=== PATIENT | female | born 1955 | race Caucasian/White ===

== ENCOUNTER 2016-11-24 13:38 | Inpatient (IN) | payer MEDICARE ==
--- NOTE | ~2016-11-24 | CT71 ---
[facility] A Service of [facility] RADIOLOGY TEXT RESULTS PATIENT: DUNCAN RAYMUNDO LOCATION: C5 55-01 : 53 UNIT #: [id number] AGE: [address]: Jon Rascon MD SEX: F ORDER DR: [id number] [facility] [address] [place], [place] [address] [id number] I MR#: [id number] Acc #: [id number] NAME: DUNCAN RAYMUNDO. : 1955 SEX: F STUDY DATE/TIME: 11/24/2016 15:18 UNIT: CEDOF ROOM: [id number] STUDY DESCRIPTION: CT Head Wo Contrast Attending Physician: Jon Rascon M.D. Ordering Physician: Marlen Watkins M.D. Primary Care Physician: Yanelis Florian M.D. MEDICAL IMAGING REPORT This report is preliminary unless electronic signature is present EXAM CT brain without contrast media DATE OF STUDY 11/24 COMPARISON 08/04/2010 HISTORY SUPPLIED Elevated blood pressure, headache, dizziness and numbness for 1 week. TECHNIQUE/COMPARISON Transaxial imaging of the brain was performed without contrast and compared to the studies of 08/04/2010. This CT exam was performed with one or more of the following radiation dose reduction techniques: automatic exposure control, adjustment of mA and/or kV according to patient size, and iterative reconstruction. FINDINGS Ventricular size and configuration in this patient is normal for the patient's age. There is a chronic large area of infarction in the right basal ganglia extending up into the right caudate. There is extensive low attenuation throughout the periventricular white matter in both hemispheres. No mass lesions, mass effect, evidence of acute hemorrhage or edema. No intra or extraaxial fluid collections are present. Visualized sinuses and mastoid air cells are clear. CONCLUSION 1. Previous right basal ganglia and caudate infarct. 2. Extensive white matter abnormalities in both hemispheres likely on the basis of small vessel deep white matter ischemic change. No [facility] A Service [facility] RADIOLOGY TEXT RESULTS PATIENT: DUNCAN RAYMUNDO LOCATION: [facility] 5509-05 : 53 UNIT #: [id number] AGE: [address]: Jon Rascon MD SEX: F ORDER DR: significant interim change from previous scan. Dictated by... Chucky Lewis M.D. THIS IS AN ELECTRONICALLY VERIFIED REPORT Chucky Lewis M.D. at 11/25/2016 10:35 AM IRMA/karla TD: 11/24/2016 21:14 JOB #: [id number] MEDICAL IMAGING REPORT Page 1 of 1 COPY
--- NOTE | ~2016-11-24 | CT98 ---
[facility] A Service of [facility] RADIOLOGY TEXT RESULTS PATIENT: DUNCAN RAYMUNDO LOCATION: [facility] 55-01 : 53 UNIT #: [id number] AGE: [address]: Jon Rascon MD SEX: F ORDER DR: [id number] [facility] [address] [place], [place] [address] [id number] I MR#: [id number] Acc #: [id number] NAME: DUNCAN RAYMUNDO. : 1955 SEX: F STUDY DATE/TIME: 11/24/2016 20:42 UNIT: [facility] ROOM: [facility] STUDY DESCRIPTION: CT Lumbar Spine Wo Cont Attending Physician: Jon Rascon M.D. Ordering Physician: Jon Rascon M.D. Primary Care Physician: Yanelis Florian M.D. MEDICAL IMAGING REPORT This report is preliminary unless electronic signature is present EXAM Lumbar spine CT HISTORY Bilateral lower extremity weakness, UTI, lower back pain since fall 2.5 months ago. TECHNIQUE This CT examination was performed with one or more of the following radiation dose reduction techniques: automatic exposure control, adjustment of mA and/or kV according to patient size, and iterative reconstruction. FINDINGS CT lumbar spine performed. No prior cross-sectional imaging of lumbar spine for comparison. Comparison to plain radiographs dated 05/27/2014. Study somewhat limited by beam hardening artifact related to the patient's very large body habitus. Dependent atelectasis at the left lung base. Visualized portions of the liver, spleen, pancreas unremarkable. There are adrenal calcifications bilaterally. No soft tissue nodule or mass lesion. This may be a reflection of prior adrenal inflammatory change or adrenal hemorrhage. Correlate with history. The visualized kidneys are unremarkable. The visualized alimentary canal is unremarkable. Scattered atherosclerotic arterial calcifications. No clear indication of aortic aneurysm. 5 lumbar-type vertebral segments. Mild dextroscoliosis lower lumbar spine. Similar appearance on prior lumbar spine radiographs. Lumbar vertebral body heights are normal. There is severe narrowing of the T11-T12 intervertebral disc space. Moderate narrowing of the L3-L4, L4-L5 disc spaces with vacuum disc phenomenon L3-L4, L4-L5. Some degenerative vacuum disc phenomenon air extends into the right L4-L5 neural foramen. [facility] A Service of [facility] RADIOLOGY TEXT RESULTS PATIENT: DUNCAN RAYMUNDO LOCATION: [facility] 551-01 : 53 UNIT #: [id number] AGE: [address]: Jon Rascon MD SEX: F ORDER DR: There is grade 1 anterolisthesis of L4 on L5 felt secondary to disc and facet degenerative changes at this level. The anterolisthesis is on the order of approximately 2 mm and is unchanged from prior plain radiographs. There is no fracture or traumatic malalignment suggested. Baseline spinal canal narrowing due to short pedicles in the lumbar spine. T10-T11, T11-T12, T12-L1: No significant disc bulge or herniation. Spinal canal diameter within normal limits. The neural foramina are patent without evidence of exiting nerve impingement. L1-L2: Unremarkable. L2-L3: Minimal posterior concentric disc bulge. Mild mass effect on thecal sac. No significant spinal canal narrowing. Neural foramina patent without evidence of exiting nerve impingement. L3-L4: Broad-based posterior concentric disc bulge superimposed on baseline spinal canal narrowing due to short pedicles exacerbated by mild to moderate facet degenerative change. There is mild to mild/moderate spinal canal narrowing. Some narrowing of the bilateral lateral recesses, left greater than right. There is mild narrowing of the bilateral neural foramina without clear indication of exiting nerve impingement. L4-L5: This level is difficult to fully assess due to beam hardening artifact related to the patient's body habitus. There is anterolisthesis as noted. There is probably some degree of posterior concentric disc bulge with disc components extending into the inferior aspects of the bilateral neural foramina, more pronounced on the left than the right. There is some counterclockwise rotation of L4 relative to L5. Moderate to marked facet degenerative changes left greater than right. Overall constellation of findings is causing marked spinal canal narrowing at the level of the superior endplate of L5. There is mass effect on the bilateral lateral recesses. Descending nerve root crowding and mass effect on descending L5 nerves is likely. There is narrowing of the bilateral L4-L5 neural foramina, greater on the left than the right. Exiting left L4 nerve impingement is a consideration. Exiting right L4 nerve irritation is also a consideration. L5-S1: Again this level is difficult to assess well due to beam hardening artifact. There is probably posterior concentric disc bulge and probably mild central spinal canal narrowing. There is facet degenerative change. Probable disc bulge extension into the inferior aspects of the bilateral neural foramina perhaps greater on the right than left. Potentially significant foraminal narrowing bilaterally more likely on right than left. Correlate with dermatomal symptoms for any indication of L5 impingement or irritation. IMPRESSION 1. There is no evidence of traumatic fracture or malalignment. [facility] A Service of [facility] RADIOLOGY TEXT RESULTS PATIENT: DUNCAN RAYMUNDO LOCATION: [facility] 551-01 : 53 UNIT #: [id number] AGE: [address]: Jon Rascon MD SEX: F ORDER DR: 2. The study is significantly limited for assessment of the lower lumbar levels secondary to beam-hardening artifact related to the patient's large body habitus. 3. Degenerative 2 mm anterolisthesis L4 on L5 felt secondary to disc and facet degenerative changes. Similar appearance on plain radiographs from 2014. 4. Multilevel degenerative changes. These are most pronounced at the L4-L5 and L5-S1 levels. Please see complete details at [id number] descriptions in body of report above. Superimposed on baseline spinal canal narrowing due to short pedicles at the L4-L5 level, there is the grade 1 anterolisthesis of L4 on L5 and a posterior concentric disc bulge which in conjunction with facet and ligamentum flavum hypertrophic changes is causing marked central spinal canal narrowing at the level of the upper L5 endplate. There is narrowing of the bilateral lateral recesses as well. Descending nerve root crowding and mass effect on descending L5 nerves likely bilaterally, particularly on the left. In addition, there is disc bulge material extending into the inferior aspects of the bilateral neural foramina, more pronounced on left than right. Narrowing of the bilateral neural foramina is felt to be present with potential mass effect on the bilateral intraforaminal L4 nerves more likely on left than right. Correlate with dermatomal symptoms. 5. Facet/ligamentum flavum hypertrophic changes in conjunction with probable posterior disc bulge L5-S1 causing probably [id number]-dx-yvibmopd central spinal canal narrowing at the L5-S1 intervertebral disc level and potentially significant bilateral foraminal narrowing. Exiting L5 nerve irritation or impingement is a consideration bilaterally. Given the limitations of this examination, spinal canal and neural foraminal contents might best be further assessed with MRI (probably necessitating open MRI due to patient's large body habitus) or CT myelography. CT myelography may prove challenging given patient's body habitus. Dictated by... Chucky Rodriguez M.D. THIS IS AN ELECTRONICALLY VERIFIED REPORT Chucky Rodriguez M.D. at 11/26/2016 8:06 PM MARJORIE/chanel TD: 11/25/2016 06:11 JOB #: [id number] MEDICAL IMAGING REPORT Page 1 of 1 COPY
--- NOTE | ~2016-11-24 | CR72 ---
[facility] A Service of [facility] RADIOLOGY TEXT RESULTS PATIENT: DUNCAN RAYMUNDO LOCATION: [place] [address] : 53 UNIT #: [id number] AGE: [address]: Jon Rascon MD SEX: F ORDER DR: [id number] [facility] [address]. [place], [place] [address] [id number] MR#: [id number] Acc #: [id number] NAME: DUNCAN RAYMUNDO. : 1955 SEX: F STUDY DATE/TIME: 11/24/2016 UNIT: [facility] ROOM: 17221 STUDY DESCRIPTION: CR Chest Single View Portable Attending Physician: Jon Rascon M.D. Ordering Physician: Marlen Watkins M.D. Primary Care Physician: Yanelis Florian M.D. MEDICAL IMAGING REPORT This report is preliminary unless electronic signature is present EXAM Chest, portable, 11/24/2016, 1409 hours. HISTORY 61-year-old woman experiencing hypertensive episode today with shortness of air. COMPARISON STUDIES 06/01/2016 FINDINGS Portable upright chest demonstrates normal heart size with stable mildly tortuous aorta. The pulmonary vascularity is normal. The lungs are clear, and there are no effusions. There is no pneumothorax. IMPRESSION No acute cardiopulmonary findings. Normal heart size with stable mildly tortuous aorta. The lungs are clear. Dictated by... Ailin Goodson M.D. THIS IS AN ELECTRONICALLY VERIFIED REPORT Ailin Goodson M.D. at 11/25/2016 9:22 AM LORENA/lolly TD: 11/24/2016 18:09 JOB #: [id number] MEDICAL IMAGING REPORT [facility] A Service [facility] RADIOLOGY TEXT RESULTS PATIENT: DUNCAN RAYMUNDO LOCATION: [place] [address] : 53 UNIT #: [id number] AGE: [address]: Jon Rascon MD SEX: F ORDER DR: Page 1 of 1 COPY
--- NOTE | ~2016-11-24 | CO ---
Unit #: [id number] #: [id number] Patient: DUNCAN RAYMUNDO [id number] [address] [address] [id number] I MR#: [id number] NAME: DUNCAN RAYMUNDO. ROOM: 55 Age: 61 Sex: F Admission Date: 11/27/2016 : 1955 Attending Physician: Jon Rascon M.D. Primary Care Physician: Yanelis lForian M.D. Consultation Date: 11/30/2016 CONSULTATION REPORT HISTORY OF PRESENT ILLNESS The patient is a 61-year-old female who has suffered with severe leg pain. She has also developed weakness in her legs and has had low back pain. She has been admitted for a urinary tract infection. PAST MEDICAL HISTORY As per chart. MEDICATIONS Per chart and include: Plavix. PHYSICAL EXAMINATION The patient is somewhat above ideal weight. She has 5/5 strength. There is no motor or sensory deficits in her lower extremities. Ambulation is deferred. DIAGNOSTIC STUDIES IMAGING: CT scan shows poorly visualized spinal stenosis at L4-5 and L5-S1. MRI of lumbar spine does not show any fractures. There is severe degenerative disk disease and facet arthropathy. Multifactorial stenosis is severe at 4-5 and 5-1 and moderate at L3-4. There appears to be a spondylolisthesis of L4 and L5. CLINICAL IMPRESSION Lumbar radiculopathy secondary to lumbar stenosis. RECOMMENDATIONS The patient is adamantly opposed to any surgical treatment. She would have to be off Plavix safely for one week to have an epidural series. Outpatient physical therapy is certainly a consideration. Dictated by... Chucky Parker M.D. IVONE/eusebia Unit #: [id number] #: [id number] Patient: DUNCAN RAYMUNDO TD: 11/30/2016 18:34 JOB #: [id number] CONSULTATION REPORT Page 1 of 1 X Chucky Parker MD X CONSULTATION REPORT
--- NOTE | ~2016-11-24 | MR113 ---
[facility] A Service of [facility] RADIOLOGY TEXT RESULTS PATIENT: DUNCAN RAYMUNDO LOCATION: [facility] 551-01 : 53 UNIT #: [id number] AGE: [address]: Jon Rascon MD SEX: F ORDER DR: [id number] [facility] [address] [place], [place] [address] [id number] I MR#: [id number] Acc #: [id number] NAME: DUNCAN RAYMUNDO. : 1955 SEX: F STUDY DATE/TIME: 11/28/2016 12:35 UNIT: [facility] ROOM: [facility] STUDY DESCRIPTION: MR Lumbar Wo Contrast Attending Physician: Jon Rascon M.D. Ordering Physician: Chucky Parker M.D. Primary Care Physician: Yanelis Florian M.D. MRI CENTER REPORT This report is preliminary unless electronic signature is present. EXAM MRI lumbar spine without contrast HISTORY Bilateral leg weakness and tingling today. Chronic low back pain for 5 years. No injury. FINDINGS MRI lumbar spine was performed without contrast. Exam sensitivity is limited by patient motion. There is normal signal in the tip of the conus at L1. There is abnormal marrow signal in the mid and inferior margins of the L4 vertebra and in the majority of the L5 vertebra, which could be secondary to chronic degenerative change. There is 3.0 mm anterior subluxation of L4 on L5. Disc desiccation and severe disc space narrowing at L4-5. At T11-T12, there is gphm-on-nkexydew diffuse disc bulging causing slight ventral impression on the central canal, but no focal disc protrusion is identified. A T12-L1, there is no disc bulge or protrusion. At L1-2, there is minimal diffuse disc bulging, but no focal disc protrusion. At L2-3, there is minimal diffuse disc bulging and moderate bilateral facet hypertrophy, with minimal central canal narrowing. At L3-4, there is moderate diffuse disc bulging, greater along the left posterolateral disc margin and there is moderate bilateral facet hypertrophy, also greater on the left, causing moderate to moderately severe central canal stenosis and bilateral outlet foraminal stenosis, [facility] A Service of [facility] & [facility] RADIOLOGY TEXT RESULTS PATIENT: DUNCAN RAYMUNDO LOCATION: [facility] 551-01 : 53 UNIT #: [id number] AGE: [address]: Jon Rascon MD SEX: F ORDER DR: jose on the left. At L4-5, there is moderate diffuse disc bulging, and severe facet and ligamentous hypertrophy, and congenitally short pedicles, resulting in severe central canal stenosis, and severe bilateral outlet foraminal stenosis. At L5-S1, there is dbog-uu-clwuxjcx diffuse disc bulging, and advanced bilateral facet and ligamentous hypertrophy, causing severe central canal stenosis, and moderately severe bilateral outlet foraminal stenosis. IMPRESSION 1. Severe central canal stenosis at L4-5 and L5-S1. 2. Severe bilateral outlet foraminal stenosis at L4-5 and moderately severe bilateral outlet foraminal stenosis at L5-S1. These changes result from diffuse disc bulging and facet and ligamentous hypertrophy at these levels. 3. At L3-L4 there is moderate diffuse disc bulging, greater along the left posterolateral disc margin causing moderate central canal stenosis and moderately severe left outlet foraminal stenosis. 4. Grade 1 spondylolisthesis of L4 on L5 with degenerative disc disease and severe disc space narrowing at L4-5. 5. Probable degenerative marrow signal changes at L4 and L5. 6. Egyt-ce-xbxynkli diffuse disc bulging at T11-12. Dictated by... Tirso Carbajal M.D. THIS IS AN ELECTRONICALLY VERIFIED REPORT Tirso Carbajal M.D. at 11/29/2016 3:02 PM Iman TD: 11/29/2016 08:00 JOB #: [id number] MRI CENTER REPORT Page 1 of 1 COPY
--- NOTE | ~2016-11-24 | BMI ---
[facility] Nutrition Therapy DATE: 11/25/16 Patient: DUNCAN RAYMUNDO Physician: MARY Address: [address] [place] [address] Room/Bed: [address] [place] [address], Zip: [place] [address] Admit Date: 11/24/16 Date of : [birth year] Height: 4 2 Weight: 220 100.2 HIGH BMI NOTE: DX: 61 y/o female admitted for bilat LE weakness ANTHROPOMETRICS: Ht: 4'2" Wt: 100 kg (220#) BMI: 62.0 INTERVENTION: 1. Healthy Heart RECOMMENDATIONS: 1. Continue healthy heart diet to promote gradual weight loss towards healthy BMI. RD will f/u per protocol. Respectfully, VAUGHN ONEIL, Gallery Director Nickie Martel RD, LD Food and Nutritional Services [facility] cc: client file
--- NOTE | ~2016-11-24 | TH ---
Unit #: [id number] #: [id number] Patient: DUNCAN RAYMUNDO [id number] [facility]. [address] [address] [id number] I MR#: [id number] NAME: DUNCAN RAYMUNDO. : 1955 SEX: F STUDY DATE/TIME: 12/01/2016 UNIT: C5B ROOM: 551 STUDY DESCRIPTION: Attending Physician: Jon Rascon M.D. Primary Care Physician: Yanelis Florian M.D. CARDIOLOGY REPORT EXAM Lexiscan Cardiolite stress test, nuclear portion. PROCEDURE Using technetium 99m labeled Cardiolite, rest and stress SPECT images were obtained. Multiple SPECT images were obtained in various views including horizontal and vertical long axis and short axis views of the left ventricle. Images were obtained by gated SPECT method. The patient was administered 29.6 mCi of Cardiolite at rest. The patient was administered 29.7 mCi of Cardiolite after Lexiscan infusion was completed. On the stress images, there is normal perfusion noted. The rest images showed normal perfusion. Comparing rest and stress images, there is no stress-induced ischemia noted. The left ventricular ejection fraction is calculated to be 62%. There is no focal wall motion abnormality seen. CONCLUSION 1. No stress-induced ischemia noted. 2. The left ventricular ejection fraction is calculated to be 62%. 3. There is no focal wall motion abnormality seen. 4. Normal Lexiscan Cardiolite stress test. 5. Technically limited study due to patient's body habitus. Clinical correlation is requested. Dictated by... Isiah Johnson TD: 12/01/2016 17:00 JOB #: [id number] CARDIOLOGY REPORT Page 1 of 1 X Mamta Landin MD <ELECTRONICALLY SIGNED> 03/26/17 1429 CARDIOLOGY REPORT
--- NOTE | ~2016-11-24 | CO ---
Unit #: [id number] #: [id number] Patient: DUNCAN MORA [id number] [facility]. [address] [place], [place] [address] [id number] MR#: [id number] NAME: DUNCAN MORA. ROOM: 551 Age: 61 Sex: F Admission Date: 11/27/2016 : 1955 Attending Physician: Jon Rascon M.D. Primary Care Physician: Yanelis Florian M.D. Consultation Date: 11/30/2016 CONSULTATION REPORT REASON FOR CONSULTATION Accelerated junctional rhythm and some premature ventricular complexes. HISTORY OF PRESENT ILLNESS This is a 61-year-old white female, who has been here for since the 27 of November with a history of increased weakness, especially in lower extremities and some tingling and unsteady gait, and it got to the point where she could hardly ambulate with her walker. The patient has a history of having a stroke in her 20s and has some residual left-sided weakness. She has a history of hypertension, hyperlipidemia, chronic back pain. She reports she had a cardiac cath years ago and told it was normal, but details are unavailable. The patient is being worked up for possible some degenerative disk disease and/or spinal stenosis and has been seen by the Spinal surgeon and she on her telemetry had a short run of appears to look like accelerated junctional rhythm. The patient was asymptomatic since the patient has multiple risk factors. Cardiology has been asked to assist with evaluation and management. On interview with the patient, she says she has been having over the last 3 to 4 weeks occasional sharp, shooting pain across her chest. It feels like a knife that only lasts about 2 to 3 seconds. She said it continues usually non-exertionally. Denies shortness of breath. No palpitations. No dizziness, presyncope, or syncope. She is having some urinary retention issues, which we are evaluating during this admission. The patient states she had seen a naprapath that has been years and no recent evaluation by a naprapath. PAST MEDICAL HISTORY 1. Hypertension. 2. Hyperlipidemia. 3. History of previous stroke, right basal ganglia infarct, left-sided weakness. 4. Chronic back pain. 5. Depression. 6. Obesity. BMI of 58 with a weight of 221 pounds. 7. Cardiac cath years ago, told it was normal. Details unavailable. 8. Nicotine abuse. PAST SURGICAL HISTORY Tubal ligation. HOME MEDICATIONS Calcium plus vitamin D 1 tablet p.o. daily, fish oil 1000 mg p.o. b.i.d., Neurontin 100 mg p.o. daily, Toprol-XL 100 mg p.o. daily, Unit #: [id number] #: [id number] Patient: DUNCAN MORA hydrochlorothiazide 25 mg p.o. b.i.d., Plavix 75 mg p.o. daily, Zoloft 50 mg p.o. daily, Zocor 10 mg p.o. at bedtime, baclofen 10 mg p.o. daily p.r.n. ALLERGIES Aspirin. SOCIAL HISTORY The patient lives in her own home. She has an uncle, who comes to her home and helps her with her chores. She ambulates with a walker. She does not drive. She is very sedentary. She smokes about half a pack to a pack of cigarettes a day. Had been smoking off and on most of her adult life. No alcohol or illicit drug abuse. FAMILY HISTORY Her mother has hypertension. Her father from alcoholism. She has two sisters, one from throat cancer and one had colon cancer. REVIEW OF SYSTEMS See details in HPI. PHYSICAL EXAMINATION GENERAL: Ms. Mora is a 61-year-old white female, no acute respiratory distress. She is awake, alert, and oriented. VITAL SIGNS: Blood pressure is 125/65, heart rate 64, respirations 18, temperature 98.1, O2 saturations 98% on room air. NECK: Trachea midline. No thyromegaly or lymphadenopathy. Normal carotid upstrokes. No jugular venous distention. HEART: S1, S2. Regular rate and rhythm. Soft systolic murmur in the left sternal border. LUNGS: Diminished. ABDOMEN: Obese, soft, nontender. EXTREMITIES: Pedal pulses are palpable. Trace pedal edema. DIAGNOSTIC STUDIES LABORATORY RESULTS: Today's labs; glucose is 97; BUN 57; creatinine 1.4; yesterday, her creatinine was 1.7; eGFR is 39.9; sodium 139; potassium 4.5; chloride 107; CO2 of 24; calcium is 8.8; magnesium is 2.0; total protein 7.6; albumin 3.7; bilirubin total 0.4; AST 23; ALT 16; alkaline phosphatase is 94. TSH is 5.01. WBCs 10.5, hemoglobin 13.1, hematocrit 40.8, and platelets are 195. Initial cardiac enzymes; CK-MB is 1.4, troponin less than 0.05. Repeat cardiac enzymes; troponin less than 0.05. INR is 1.0. Urinalysis shows 0.2 urobilinogen. Urine culture, final; no growth. IMAGING STUDIES: Chest x-ray shows nothing acute. Lungs are clear. CT of the head shows previous right basal ganglia and caudate infarct. CT of the lumbar spine shows multilevel degenerative changes, especially at L4-L5 and L5-S1 levels. There is a baseline spinal canal narrowing at L4-L5 level and also probable posterior disk bulge at L5-S1 and mild to moderate central spinal canal narrowing at L5-S1. MRI of lumbar spine without contrast shows severe central canal stenosis at L4-5 and L5-S1, severe bilateral outlet foraminal stenosis at L4-L5, and moderately severe bilateral outlet foraminal stenosis at L5-S1. There is moderate diffuse disk bulging on L3-L4 and spondylolisthesis on L4-L5 Unit #: [id number] #: [id number] Patient: DUNCAN MORA with degenerative disk disease and severe disk space narrowing at L4-L5. CARDIOVASCULAR STUDIES: EKG shows normal sinus rhythm with ventricular rate 62 beats per minute, left ventricular hypertrophy. Telemetry this morning shows sinus rhythm and her short run of accelerated idioventricular rhythm versus accelerated junctional rhythm with occasional premature ventricular complex. IMPRESSION 1. Bilateral lower extremity weakness. MRI shows severe canal stenosis on L4-L5 and L5-S1. 2. Acute renal failure. 3. Urinary tract infection. 4. Hypertension. 5. Junctional rhythm. 6. Previous stroke back in several years ago, has some left-sided weakness. 7. Hyperlipidemia. 8. Nicotine abuse. 9. Obesity. PLAN 1. Cardiology consult to assist with evaluation and management. 2. The patient had a run of looks like idioventricular rhythm versus accelerated junctional rhythm. 3. We will obtain a TSH and lipid profile and evaluate. We will check the patient's magnesium level and potassium and make sure there is no electrolyte imbalance causes this arrhythmia. The patient was asymptomatic. The patient has been having some atypical chest pain. It is sharp, shooting in nature, which is unlikely to be angina, but it has been years since the patient had any type of ischemic heart disease workup. We will try to obtain a cardiac cath that, she said that she believes, was done at [facility]. 4. We will obtain a 2D echo to evaluate LV function and valves. On exam, it does not appear she is in acute congestive heart failure. 5. We will schedule the patient for Lexiscan Cardiolite stress test, resting today and a stress portion tomorrow. We will decrease her metoprolol to 50 mg p.o. b.i.d. with parameters and monitor closely any arrhythmias. Encourage the patient a weight loss. We will have the librarian assistant to help the patient with diet to maintain goals for weight loss. 6. Encourage the patient to completely quit smoking. 7. Smoking cessation information provided to the patient. 8. Further recommendations pending further testing. Thank you very much for allowing us to assist in the care. Dictated by... Roman Culp/zandra TD: 12/01/2016 05:29 JOB #: [id number] Unit #: [id number] #: [id number] Patient: DUNCAN MORA CONSULTATION REPORT Page 1 of 1 X Nicole King APRN X CONSULTATION REPORT
--- NOTE | ~2016-11-24 | EKG ---
PATIENT: DUNCAN RAYMUNDO UNIT #: [id number] Ventricular Rate: 62 BPM Atrial Rate: 62 BPM P-R Interval: 156 ms QRS Duration: 74 ms Q-T Interval: 396 ms QTC Calculation(Bezet): 401 ms P [place]: 21 degrees Calculated R [place]: 1 degrees Calculated T [place]: 11 degrees Diagnosis Line: Normal sinus rhythm Diagnosis Line: Moderate voltage criteria for LVH, may be normal Diagnosis Line: variant Diagnosis Line: Borderline ECG Baseline wander Diagnosis Line: When compared with ECG of 21-JAN-2015 13:27, Diagnosis Line: No significant change was found Diagnosis Line: Confirmed by CHARLEY OROZCO MD ([id number]) on 11/26/2016 Diagnosis Line: 9:30:35 AM INTERPRETING MD: ERNESTO CASH
--- NOTE | ~2016-11-24 | DS ---
Unit #: [id number] #: [id number] Patient: DUNCAN RAYMUNDO [id number] [address] [address] [id number] I MR#: [id number] NAME: DUNCAN RAYMUNDO. ROOM: 551 Age: 61 Sex: F Admission Date: 11/27/2016 : 1955 Discharge Date: 12/02/2016 Attending Physician: Jon Rascon M.D. Primary Care Physician: Yanelis Florian M.D. DISCHARGE SUMMARY FINAL DIAGNOSES 1. Accelerated hypertension. 2. Questionable urinary tract infection. Urine culture is negative. 3. Bilateral lower extremity weakness. Unable to ambulate. 4. Severe central canal stenosis at L4-L5 and L5-S1. 5. Acute renal failure which is improved. 6. History of chronic kidney disease stage 2, due to hypertension. 7. Urinary retention, status post Valles, which has been removed and Flomax has been added. 8. Junctional rhythm episode on 11/30/2016. 9. Status post carotid stress test which was normal. 10. Previous CVA. 11. Nicotine abuse. 12. Morbid obesity. 13. Hyperlipidemia. DISCHARGE MEDICATIONS 1. Fish oil capsule b.i.d. 2. Pepcid 20 mg daily. 3. Plavix 75 mg daily. 4. Os-Juan Antonio 500 p.o. daily. 5. Baclofen 10 mg daily p.r.n. muscle spasm. 6. Zocor 10 mg at bedtime. 7. Toprol 25 mg b.i.d. 8. Mycostatin powder under the breast area q.i.d. 9. Zoloft 50 mg daily. 10. Neurontin 100 mg daily. 11. Flomax 0.4 mg daily. 12. Combivent nebulizer treatment p.r.n. CONSULTANTS Dr. Adam Marie from renal services. Dr. Chucky Parker from neurosurgery services. Dr. Landin from cardiology services. DIAGNOSTIC DATA LABORATORY: At discharge, sodium 139, potassium 4.3, chloride 109, BUN 39, creatinine 1.1, calcium 9.0. CBC shows white blood cell count 10.5, hemoglobin 13.1, hematocrit 40.8, platelets 195. TSH 5.01. Urine culture is no growth. IMAGING: MRI of the lumbar spine was done, which showed severe central canal stenosis at L4-L5 and L5-S1, severe bilateral outlet foraminal stenosis at L4-L5. Diffuse disc bulging at L3-L4. Grade 1 Unit #: [id number] #: [id number] Patient: DUNCAN RAYMUNDO spondylolisthesis of L4 on L5 with degenerative disc disease, mild to moderate diffuse disc bulging at T11-T12. HOSPITAL COURSE Uncontrolled hypertension: The patient had accelerated hypertension during hospitalization. Her medications have been adjusted. The patient's blood pressure is much better this morning. Blood pressure is 118/59. Urinary tract infection: There was a question of urinary tract infection. The patient received IV Rocephin during hospitalization. That has been discontinued because the patient's urine culture is negative. She is afebrile and has no leukocytosis and does not have any symptoms any more. Bilateral lower extremity weakness and radiculopathy: The patient had a CT scan done and later on MRI of the lumbar spine done. Dr. Parker was consulted. Per Dr. Parker, the patient is adamantly opposed to any surgical treatment. She would have to be off Plavix therapy for a week to have any epidural series. Outpatient physical therapy was recommended. I have personally talked with Dr. Parker and no surgical intervention at this time. Rehab facility transfer for physical therapy and occupational therapy. If symptoms get worse, then the patient needs to be referred back to neurosurgeon. Junctional rhythm: During hospitalization the patient did have junctional rhythm. The patient's beta pardeep was reduced in dose and she is doing much better. Stress test was done as per recommendation and it shows normal Lexiscan Cardiolite. Left ventricular ejection fraction was 60%-65%. The patient's right ventricular pressure is normal. Acute kidney injury on chronic kidney disease: The patient's hydrochlorothiazide was discontinued. Protonix was discontinued. She does have a history of chronic kidney disease stage 2 secondary to hypertension. The patient's renal symptoms are better and that needs to be observed. NSAIDs need to be avoided. BMP is to be done in one week. Urinary retention: The patient did have urinary retention during hospitalization and Flomax was started. Valles was discontinued on 12/01/2016. Voiding trial will be done. If it is normal the patient will be discharged. Tobacco abuse: Tobacco cessation counseling has been done. DISCHARGE PHYSICAL EXAMINATION VITALS: Blood pressure 118/59, respiratory rate 18, pulse 59, temperature 98.2. HEAD: Normocephalic. CHEST: Fair air entry. HEART: S1 and S2 positive. Regular rhythm. ABDOMEN: Obese. EXTREMITIES: Negative edema. DISCHARGE INSTRUCTIONS 1. The patient will be discharged to rehab facility in stable condition. 2. Medications as per medication reconciliation. 3. Physical therapy and occupational therapy at rehab. 4. Follow up with Dr. Florian in a week when discharged from rehab facility. Unit #: [id number] #: [id number] Patient: DUNCAN RAYMUNDO 5. If the patient's symptoms of back pain or lower extremity weakness get worse, the patient will be referred back to Dr. Parker. Dictated by... Isiah Angeles/cassia TD: 12/02/2016 09:33 JOB #: [id number] DISCHARGE SUMMARY Page 1 of 1 X Yanelis Florian MD X DISCHARGE SUMMARY
--- NOTE | ~2016-11-24 | CO ---
Unit #: [id number] #: [id number] Patient: DUNCAN MORA [id number] [facility]. [address] [place], [place] [address] [id number] I MR#: [id number] NAME: DUNCAN MORA. ROOM: 551 Age: 61 Sex: F Admission Date: 11/27/2016 : 1955 Attending Physician: Jon Rascon M.D. Primary Care Physician: Yanelis Florian M.D. Consultation Date: 11/29/2016 CONSULTATION REPORT REASON FOR CONSULTATION Acute kidney injury and hypertension management. HISTORY OF PRESENT ILLNESS Ms. Mora is a pleasant 61-year-old female, who was admitted back on the for issues with accelerated hypertension and low back pain with lower extremity weakness. She was also suspected to have a urinary tract infection. The patient has had multiple scans for her low back, none of which contained any IV contrast. Due to her elevated blood pressures, her medication has been titrated higher and lisinopril was introduced. She did have some readings that dropped into the 90s on a couple of occasions. In addition, nursing evaluated her bladder for urinary retention and found 358 mL of retention on a scan today and a Valles catheter has been placed. She is still having some bladder spasm. She denies any chest discomfort or shortness of breath. She was not using any NSAIDs before coming in. She has no history of kidney stones. PAST MEDICAL HISTORY Significant for hypertension, history of stroke in the past according to her, depression, and hyperlipidemia. PAST SURGICAL HISTORY None reported. CURRENT MEDICATIONS As follows; amlodipine 5 mg daily, Lovenox 40 mg subcu daily, Protonix 40 mg daily, calcium plus D daily, fish oil b.i.d., Neurontin 100 mg a day, Toprol-XL 100 mg a day, hydrochlorothiazide 25 mg a day, Plavix 75 mg a day, Zoloft 50 mg a day, Zocor 10 mg at bedtime, Nystatin topical as needed, lisinopril 10 mg daily was held, also have Rocephin 1 g IV daily, and p.r.n. ALLERGIES She has quoted allergy to aspirin. FAMILY HISTORY She denies any family history of kidney problems specifically no one on dialysis or needing kidney transplantation. SOCIAL HISTORY The patient does smoke about a pack or more of cigarettes per day. No alcohol or drug abuse. REVIEW OF SYSTEMS Unit #: [id number] #: [id number] Patient: DUNCAN MORA A complete 12-point review of systems was completed with the above findings. In addition, she denies any headaches or dizziness. No nosebleed. No sore throat or earache. No chest pain or palpitations. No cough or hemoptysis. No nausea, vomiting, or diarrhea. In fact, she is eating dinner currently. No abdominal pain. No hematuria. No swelling. No rashes. No itching. No night sweats or hot flashes. No intolerance to heat or cold. No chills. No bleeding issues. No recent weight changes. No blurry vision. Unless otherwise indicated, the review of systems was negative. PHYSICAL EXAMINATION VITAL SIGNS: The patient is afebrile, pulse 61, respiratory rate 20, blood pressure 151/68. Lowest blood pressure I see was 2 days ago at 93/47, and she had another one before that of 95/53. I's and O's are positive by 270 mL. GENERAL: This is a pleasant 61-year-old white female, who is alert, eating dinner, and in no acute distress. HEENT: Head is atraumatic and normocephalic. Eyes show pink conjunctivae with no scleral icterus. No nasal drainage or nosebleed. Oropharynx is moist. No thrush. She does have a narrow posterior pharyngeal airway. NECK: Thick with no JVD appreciated. HEART: Regular rate and rhythm with distant S1 and S2. No murmur or rub appreciated. LUNGS: Have diminished air entry bilaterally with no wheezing. Breathing is nonlabored. ABDOMEN: Obese, soft, nontender, nondistended. Bowel sounds are present. No masses appreciated. EXTREMITIES: No lower extremity cyanosis or edema. SKIN: Dry. No rashes. MUSCULOSKELETAL: No joint effusions noted. NEUROLOGIC: The patient is able to wiggle her toes. Tonight she said she did get up and walk some today cranial nerves are grossly intact. LYMPHATIC: There is no neck or cervical lymphadenopathy. PSYCHIATRIC: Mood and affect appear normal. No anxiety. DIAGNOSTIC STUDIES LABORATORY RESULTS: Magnesium level just drawn was 2. Urinalysis today was bland with no blood or protein. Chemistry earlier today; sodium 141, potassium 4.4, chloride 106, bicarb 23, glucose 94, BUN 61, creatinine up to 1.7. Procalcitonin was negative. CBC showed a white count of 11. Yesterday's creatinine was 1.5. Urine culture thus far is negative. CBC with diff 2 days ago showed no eosinophilia. Creatinine before this was 1.2. BNP was 28. Back on the creatinine was 0.9; therefore, overall creatinine has trended up. On admission here at 1.2 up to 1.7 today. IMAGING STUDIES: Chest x-ray on admit showed no acute findings. Again review of her imaging here of her back which has shown degenerative disk disease. Does not show any CT contrast used. ASSESSMENT AND PLAN 1. Acute kidney injury on possible chronic kidney disease, stage 2 due to hypertension. Again, her admission creatinine was 1.2 which is abnormal for a female at her age. Her acute kidney injury is likely prerenal in nature from intermittent hypotension while on an ALLYSSA inhibitor which was introduced while here in the hospital. She has also been on Unit #: [id number] #: [id number] Patient: DUNCAN MORA hydrochlorothiazide, which was stopped. I do agree with stopping her ALLYSSA inhibitor and diuretic and using IV fluids. I would not over treat her blood pressure as I think her blood pressure variability is part of the prerenal picture. Of note, she did get started on Protonix when she came in, which can cause acute interstitial nephritis, so we will discontinue this and switch her over to Pepcid with followup labs in the morning. We will also check a CPK level with her statin use. 2. Hypertension. This has been very labile. I would allow her blood pressures to level off somewhere around 140 or 150 to allow renal recovery and would not over treat her blood pressure. 3. Urinary retention. Valles catheter is in place and I will be adding Flomax. 4. Tobacco abuse. Counseling was given. 5. Bilateral lower extremity weakness being followed by Spine. 6. Questionable urinary tract infection on Rocephin, but culture negative. I would like to thank Dr. Florian for this consult and the opportunity to participate in evaluation and care of Ms. Mora. Dictated by... Caleb Marie Jr., M.D. ASHLEY/zandra TD: 11/30/2016 01:58 JOB #: [id number] CONSULTATION REPORT Page 1 of 1 X Caleb Marie MD CONSULTATION REPORT
--- NOTE | ~2016-11-24 | ST ---
Unit #: [id number] #: [id number] Patient: DUNCAN RAYMUNDO [id number] [facility]. [facility] [address] [facility]. [place], [place] [address] [id number] I MR#: [id number] NAME: DUNCAN RAYMUNDO. : 1955 SEX: F STUDY DATE/TIME: 12/01/2016 UNIT: [id number] ROOM: 551 STUDY DESCRIPTION: Attending Physician: Jon Rascon M.D. Primary Care Physician: Yanelis Florian M.D. CARDIOLOGY REPORT EXAM Lexiscan Cardiolite stress test. FINDINGS Baseline EKG: Sinus bradycardia, heart rate 58 beats per minute, poor R-wave progression, low voltage in V3, T-wave inversion in lead III. PROCEDURE Lexiscan is a 4-minute test with Lexiscan being injected within the first minute followed by Cardiolite. EKG during the test was equivocal to baseline. Continued to show T-wave inversion in lead III and nonspecific ST-T wave abnormalities in aVF, also in V4 and V5. The patient had no complaints of chest pain, palpitations, or dizziness. Had increased shortness of breath and fatigueness which resolved in recovery phase. Maximal heart rate response was 84 beats per minute with a maximum blood pressure response of 125/88 mmHg. Cardiolite was injected after Lexiscan within the first minute of the test. Radionuclide tests pending. Please correlate with nuclear images. Dictated by... Nicole King A.P.R.N. for Isiah Johnson/douglas TD: 12/01/2016 08:58 JOB #: [id number] CARDIOLOGY REPORT Page 1 of 1 X Nicole King APRN CARDIOLOGY REPORT
--- NOTE | ~2016-11-24 | HP ---
Unit #: [id number] #: [id number] Patient: DUNCAN MORA [id number] [facility]. [address] [place], [place] [address] [id number] I MR#: [id number] NAME: DUNCAN MORA. ROOM: 55 Age: 61 Sex: F Admission Date: 11/24/2016 : 1955 Attending Physician: Jon Rascon M.D. Primary Care Physician: Yanelis Florian M.D. HISTORY AND PHYSICAL ADMISSION DIAGNOSES 1. Accelerated hypertension. 2. Questionable UTI. 3. Bilateral lower extremity weakness, inability to ambulate. HISTORY OF PRESENT ILLNESS Ms. Duncan Mora is a 61-year-old female, a patient of Dr. Florian, who comes to the emergency room with complaints of increased generalized weakness along with bilateral lower extremity weakness and tingling. The patient denies any chest pain. Denies any shortness of air. Denies any headache, dizziness, fever, chills, nausea, vomiting, diarrhea or abdominal pain. The patient states that her symptoms started about 2-3 days ago and progressively got worse to the point that she is not able to ambulate today. Initial evaluation in the emergency room is significant for leukocyte esterase in the UA, along with white count of 13,000. The rest of the workup is basically unremarkable. CT of the head shows some old changes and chronic vascular changes but nothing acute. Chest x-ray also is unremarkable. Patient is getting admitted for 23-hour observation pending urine culture. REVIEW OF SYSTEMS A 12-point review of systems on this patient is basically negative except as above in HPI. PAST MEDICAL HISTORY Significant for hypertension, history of CVA in the past. PAST SURGICAL HISTORY None. HOME MEDICATIONS I do not have in front of me, but this will be clarified with the pharmacy, and the patient will be restarted accordingly. ALLERGIES Aspirin. FAMILY HISTORY Unremarkable. PHYSICAL EXAMINATION GENERAL: The patient is a 61-year-old female in no acute distress. VITAL SIGNS: BP currently 135/85, heart rate 72, respirations 20, temperature 98.2. Unit #: [id number] #: [id number] Patient: DUNCAN MORA HEENT: Head is atraumatic. Pupils are equal, round and reactive to light and accommodation. Extraocular muscles are intact. Oropharynx is clear. NECK: Neck is supple. No masses. No JVD. No bruit. RESPIRATORY: Chest is diminished at the bases but generally clear. CARDIOVASCULAR: S1, S2. No murmurs. ABDOMEN: Abdomen is soft, nontender, nondistended. EXTREMITIES: Lower extremities have no cyanosis, clubbing or edema. NEUROLOGIC: Patient grossly intact without any focal deficits except bilateral lower extremity weakness, maybe 3 to 4/5. She demonstrates, also, decreased sensation in bilateral lower extremities. ASSESSMENT AND PLAN 1. Bilateral lower extremity weakness with paresthesia with the patient having a history of chronic back pain. Will check the CT of the back. Will also have PT/OT evaluation. 2. Accelerated hypertension. Currently stable. Resume home meds. Monitor closely. 3. UTI. Started on Rocephin. Followup on urine cultures. 4. GI and DVT prophylaxis. Start PPI and Lovenox. Dictated by Isiah Gaviria/yuri TD: 11/25/2016 08:58 JOB #: [id number] HISTORY AND PHYSICAL Page 1 of 1 X Jon Rascon MD HISTORY AND PHYSICAL
[2016-11-24 14:57] LABS: BASOPHIL# 0.1 X10e3 (0-0.3); BASOPHIL% 0.8 % (0-2.5); EOSINOPHIL# 0.3 X10e3 (0-0.7); EOSINOPHIL% 2.6 % (0.0-7.0); HEMATOCRIT 44.3 % (35.0-45.0); HEMOGLOBIN 14.4 gm/dL (12.0-16.0); LYMPHOCYTE% 15.1 % (17.0-45.0); MEAN CELL VOLUME 90.9 FL (83-96); MEAN CORPUSCULAR HEMOGLOBIN 29.7 PG (28-34); MEAN CORPUSCULAR HGB CONC 32.6 g/dL (30-36); MEAN PLATELET VOLUME 10.3 FL (6.5-11.5); MONOCYTE# 0.9 X10e3 (0-1.0); MONOCYTE% 6.7 % (3.0-12.0); NEUTROPHIL# 9.9 X10e3 (1.5-7.1); NEUTROPHIL% 74.8 % (40-75); PLATELET COUNT 211 X10e3 (140-420); RED BLOOD COUNT 4.87 X10e (3.90-5.30); RED CELL DISTRIBUTION WIDTH 13.9 % (11.0-15.5); WHITE BLOOD COUNT 13.2 X10e3 (4.0-10.5)
[2016-11-24 14:57] LABS: POC - CKMB 1.4 ng/mL (0.0-7.9); POC - TROPONIN <0.05 ng/mL (<=0.05)
[2016-11-24 14:58] LABS: DIFF IND NO
[2016-11-24 15:16] LABS: PARTIAL THROMBOPLASTIN TIME 27.5 SECONDS (23.5-31.3); PROTHROMBIN TIME (PATIENT) 10.2 SECONDS (9.6-11.5)
[2016-11-24 15:26] LABS: ALBUMIN SERUM 3.7 g/dL (3.5-5.0); ALKALINE PHOSPHATASE 94 U/L (32-92); ALT (SGPT) 16 U/L (10-40); AST (SGOT) 23 U/L (10-42); BILIRUBIN, DIRECT 0.1 mg/dL (0.0-0.2); BILIRUBIN,INDIRECT 0.3 mg/dL (0.0-0.9); BILIRUBIN,TOTAL 0.4 mg/dL (0.2-2.0); BLOOD UREA NITROGEN 29 mg/dL (9-23); BUN/CREATININE RATIO 32.22; CALCIUM SERUM 9.6 mg/dL (8.4-10.2); CARBON DIOXIDE 26 mmol/L (22-31); CHLORIDE 104 mmol/L (100-111); CREATININE SERUM 0.9 mg/dL (0.6-1.4); GLOM FILT RATE Estimated ABOVE60 mL/min (>60); GLUCOSE FASTING 96 mg/dL (70-110); POTASSIUM 4.1 mmol/L (3.5-5.1); PROTEIN TOTAL SERUM 7.6 g/dL (6.0-8.3); SODIUM 139 mmol/L (135-145)
[2016-11-24 16:32] LABS: URINE SOURCE CLEAN CATCH
[2016-11-24 16:37] LABS: URINE APPEARANCE CLEAR; URINE BILIRUBIN NEG (NEG); URINE BLOOD NEG (NEG); URINE COLOR YELLOW; URINE GLUCOSE NEG (NEG); URINE KETONE NEG (NEG); URINE LEUKOCYTE ESTERASE TRACE (NEG); URINE NITRATE NEG (NEG); URINE PROTEIN NEG (NEG); URINE SPECIFIC GRAVITY 1.015 (1.003-1.035); URINE UROBILINOGEN 0.2 MG/DL (NEG)
[2016-11-24 16:40] LABS: URBCS1 AUWI 0-2 /[HPF] (0-2); URINE BACTERIA AUWI NEG (NEGATIVE); URINE SQUAMOUS EPITHELIAL CELL NONE SEEN /[HPF]; UWBCS1 AUWI 0-2 (0-5)
[2016-11-24 16:46] LABS: CULTURE INDICATED? NO
[2016-11-24 19:35] LABS: FOLATE (FOLIC ACID) >23.6 ng/mL (>5.8)
[2016-11-25 05:59] LABS: HEMATOCRIT 43.1 % (35.0-45.0); MEAN CELL VOLUME 90.5 FL (83-96); MEAN CORPUSCULAR HEMOGLOBIN 29.5 PG (28-34); MEAN CORPUSCULAR HGB CONC 32.5 g/dL (30-36); MEAN PLATELET VOLUME 9.9 FL (6.5-11.5); RED BLOOD COUNT 4.77 X10e (3.90-5.30); RED CELL DISTRIBUTION WIDTH 13.5 % (11.0-15.5); WHITE BLOOD COUNT 11.1 X10e3 (4.0-10.5)
[2016-11-25] MEDS ORDERED: CALCIUM + D 6001 TA1 PO (16:29)
[2016-11-25] MEDS ORDERED: FISH OIL 1,0001 CAP PO (16:29)
[2016-11-25] MEDS ORDERED: HYDROCHLOROTHIA25 MG PO (16:31)
[2016-11-25] MEDS ORDERED: ZOLOFT50 MG PO (16:32)
[2016-11-25] MEDS ORDERED: CLOPIDOGREL75 MG PO (16:32)
[2016-11-25] MEDS ORDERED: ZOCOR10 MG PO (16:33)
[2016-11-26 05:42] LABS: HEMATOCRIT 44.3 % (35.0-45.0); HEMOGLOBIN 14.4 gm/dL (12.0-16.0); MEAN CELL VOLUME 91.2 FL (83-96); MEAN CORPUSCULAR HEMOGLOBIN 29.7 PG (28-34); MEAN CORPUSCULAR HGB CONC 32.6 g/dL (30-36); MEAN PLATELET VOLUME 9.8 FL (6.5-11.5); RED BLOOD COUNT 4.86 X10e (3.90-5.30); RED CELL DISTRIBUTION WIDTH 13.4 % (11.0-15.5)
[2016-11-26 06:13] LABS: BUN/CREATININE RATIO 22.5; CREATININE SERUM 1.2 mg/dL (0.6-1.4); GLOM FILT RATE Estimated 48.1 mL/min (>60)
[2016-11-28 05:14] LABS: BASOPHIL# 0.1 X10e3 (0-0.3); BASOPHIL% 0.8 % (0-2.5); EOSINOPHIL# 0.3 X10e3 (0-0.7); EOSINOPHIL% 2.5 % (0.0-7.0); HEMATOCRIT 43.8 % (35.0-45.0); LYMPHOCYTE# 3.2 X10e3 (1.0-3.5); LYMPHOCYTE% 23.8 % (17.0-45.0); MEAN CELL VOLUME 92.4 FL (83-96); MEAN CORPUSCULAR HEMOGLOBIN 29.5 PG (28-34); MEAN PLATELET VOLUME 10.3 FL (6.5-11.5); MONOCYTE% 7.6 % (3.0-12.0); NEUTROPHIL# 8.9 X10e3 (1.5-7.1); NEUTROPHIL% 65.3 % (40-75); PLATELET COUNT 201 X10e3 (140-420); RED BLOOD COUNT 4.74 X10e (3.90-5.30); RED CELL DISTRIBUTION WIDTH 13.5 % (11.0-15.5); WHITE BLOOD COUNT 13.7 X10e3 (4.0-10.5)
[2016-11-28 05:22] LABS: DIFF IND NO
[2016-11-28 05:57] LABS: BUN/CREATININE RATIO 31.33; CALCIUM SERUM 9.1 mg/dL (8.4-10.2); CREATININE SERUM 1.5 mg/dL (0.6-1.4); GLOM FILT RATE Estimated 36.7 mL/min (>60)
[2016-11-29 06:16] LABS: HEMATOCRIT 43.1 % (35.0-45.0); HEMOGLOBIN 13.7 gm/dL (12.0-16.0); MEAN CELL VOLUME 92.1 FL (83-96); MEAN CORPUSCULAR HEMOGLOBIN 29.3 PG (28-34); MEAN CORPUSCULAR HGB CONC 31.8 g/dL (30-36); MEAN PLATELET VOLUME 10.3 FL (6.5-11.5); RED BLOOD COUNT 4.68 X10e (3.90-5.30); RED CELL DISTRIBUTION WIDTH 13.7 % (11.0-15.5)
[2016-11-29 07:16] LABS: BLOOD UREA NITROGEN 61 mg/dL (9-23); BUN/CREATININE RATIO 35.88; CALCIUM SERUM 9.1 mg/dL (8.4-10.2); CARBON DIOXIDE 23 mmol/L (22-31); CHLORIDE 106 mmol/L (100-111); CREATININE SERUM 1.7 mg/dL (0.6-1.4); GLOM FILT RATE Estimated 31.6 mL/min (>60); GLUCOSE FASTING 94 mg/dL (70-110); POTASSIUM 4.4 mmol/L (3.5-5.1); SODIUM 141 mmol/L (135-145)
[2016-11-29 07:17] LABS: PROCALCITONIN <0.05 NG/ML
[2016-11-29 16:38] LABS: URINE SOURCE CATH
[2016-11-29 16:45] LABS: URINE APPEARANCE CLEAR; URINE BILIRUBIN NEG (NEG); URINE BLOOD NEG (NEG); URINE COLOR YELLOW; URINE GLUCOSE NEG (NEG); URINE KETONE NEG (NEG); URINE LEUKOCYTE ESTERASE NEG (NEG); URINE NITRATE NEG (NEG); URINE PROTEIN NEG (NEG); URINE SPECIFIC GRAVITY 1.015 (1.003-1.035); URINE UROBILINOGEN 0.2 MG/DL (NEG)
[2016-11-30 06:14] LABS: BASOPHIL# 0.1 X10e3 (0-0.3); EOSINOPHIL# 0.3 X10e3 (0-0.7); EOSINOPHIL% 3.2 % (0.0-7.0); HEMATOCRIT 40.8 % (35.0-45.0); HEMOGLOBIN 13.1 gm/dL (12.0-16.0); LYMPHOCYTE# 2.2 X10e3 (1.0-3.5); LYMPHOCYTE% 21.1 % (17.0-45.0); MEAN CELL VOLUME 92.1 FL (83-96); MEAN CORPUSCULAR HEMOGLOBIN 29.7 PG (28-34); MEAN CORPUSCULAR HGB CONC 32.2 g/dL (30-36); MEAN PLATELET VOLUME 10.5 FL (6.5-11.5); MONOCYTE# 0.9 X10e3 (0-1.0); MONOCYTE% 8.1 % (3.0-12.0); NEUTROPHIL% 66.6 % (40-75); PLATELET COUNT 195 X10e3 (140-420); RED BLOOD COUNT 4.43 X10e (3.90-5.30); RED CELL DISTRIBUTION WIDTH 13.4 % (11.0-15.5); WHITE BLOOD COUNT 10.5 X10e3 (4.0-10.5)
[2016-11-30 06:18] LABS: DIFF IND NO
[2016-11-30 07:19] LABS: BUN/CREATININE RATIO 40.71; CALCIUM SERUM 8.8 mg/dL (8.4-10.2); CREATININE SERUM 1.4 mg/dL (0.6-1.4); GLOM FILT RATE Estimated 39.9 mL/min (>60); POTASSIUM 4.5 mmol/L (3.5-5.1)
[2016-12-01 06:56] LABS: CALCIUM SERUM 8.9 mg/dL (8.4-10.2); CREATININE SERUM 1.1 mg/dL (0.6-1.4); GLOM FILT RATE Estimated 53.4 mL/min (>60); POTASSIUM 4.1 mmol/L (3.5-5.1)
[2016-12-02 06:24] LABS: BUN/CREATININE RATIO 35.45; CREATININE SERUM 1.1 mg/dL (0.6-1.4); GLOM FILT RATE Estimated 53.4 mL/min (>60); POTASSIUM 4.3 mmol/L (3.5-5.1)
== END 2016-12-02 19:10 | DRG 683 ==
LOC: CED 13:38 → CEDOF 17:25 → C5B 11-27 18:30
PROVIDERS: Emergency Medicine; Hospitalist; Internal Medicine Cardiovascular Disease; Internal Medicine Nephrology; Physician Assistant Medical
PROC: B24BYZZ Ultrasonography of Heart with Aorta using Other Contrast (ICD-10-PCS; principal; 2016-11-30)
DX: N17.9 Acute kidney failure, unspecified (principal); I69.954 Hemiplegia and hemiparesis following unspecified cerebrovascular disease affecting left non-dominant side; I12.9 Hypertensive chronic kidney disease with stage 1 through stage 4 chronic kidney disease, or unspecified chronic kidney disease; Z68.43 Body mass index [BMI] 50.0-59.9, adult; N39.0 Urinary tract infection, site not specified; M48.07 Spinal stenosis, lumbosacral region; R20.9 Unspecified disturbances of skin sensation; I49.3 Ventricular premature depolarization; E78.5 Hyperlipidemia, unspecified; F32.9 Major depressive disorder, single episode, unspecified; F17.210 Nicotine dependence, cigarettes, uncomplicated; Z98.51 Tubal ligation status; Z88.6 Allergy status to analgesic agent; M51.17 Intervertebral disc disorders with radiculopathy, lumbosacral region; N18.2 Chronic kidney disease, stage 2 (mild); R33.9 Retention of urine, unspecified; E66.01 Morbid (severe) obesity due to excess calories
CPT/HCPCS: 36415; 70450; 71010; 72131; 72148; 78452; 80048; 80061; 80076; 81003; 82308; 82550; 82553; 82607; 82746; 82947; 83735; 83880; 84443; 84484; 85025; 85027; 85610; 85730; 87086; 93005; 93017; 93306; 94640; 94760; 97110; 97116; 97163; 97167; 97530; 97535; 99285; A9500; G8978-GP; G8979-GP; G8980-GP; G8987-GO; G8988-GO; J0696; J1650; J2785

== ENCOUNTER 2017-02-13 11:18 | Observation (INO) | payer MEDICARE ==
--- NOTE | ~2017-02-13 | BMI ---
[facility] Nutrition Therapy DATE: 02/14/17 Patient: DUNCAN RAYMUNDO Physician: LINH Address: [address] [place] [address] Room/Bed: [address] [place] [address], Zip: [place] [address] Admit Date: 02/13/17 Date of : [birth year] Height: 5 5 Weight: 299 136 HIGH BMI NOTE: DX: 62 Y.O. FEMALE ADMITTED FOR WEAKNESS AND POSSIBLE UTI ANTHROPOMETRICS: 4'2" (PER PT), WT: 204# (PER PT) (93 KG), BMI: 57.4 DIET: REGULAR DIET RECOMMENDATIONS: 1. RECOMMEND TO CHANGE CURRENT DIET ORDER TO HEALTHY HEART TO PROMOTE GRADUAL WEIGHT LOSS TOWARDS HEALTHY BMI (19.0-25.0) OR +/-10%IBW RD WILL F/U PER PROTOCOL Respectfully, OVIDIO BHAKTA MS, RD, LD Food and Nutritional Services [facility] cc: client file
--- NOTE | ~2017-02-13 | MR17 ---
[facility] A Service of [facility] & [facility] RADIOLOGY TEXT RESULTS PATIENT: DUNCAN RAYMUNDO LOCATION: C2A : 53 UNIT #: [id number] AGE: [address]: Yanelis Florian MD SEX: F ORDER DR: [id number] [facility] [address]. [place], [place] [address] [id number] I MR#: [id number] Acc #: [id number] NAME: DUNCAN RAYMUNDO : 1955 SEX: F STUDY DATE/TIME: 02/14/2017 20:45 UNIT: C2A ROOM: [facility] STUDY DESCRIPTION: MR Brain WWo Contrast Attending Physician: Yanelis Florian M.D. Ordering Physician: Yanelis Florian M.D. Primary Care Physician: Yanelis Florian M.D. MRI CENTER REPORT This report is preliminary unless electronic signature is present. EXAM MRI brain, 02/14 INDICATION Generalized weakness with dizziness and tremors that started yesterday. Recent fall. TECHNIQUE Multisequence multiplanar imaging was performed through the brain before and after the IV administration of 20 mL of MultiHance contrast. COMPARISON No comparison MRI. FINDINGS Diffusion imaging reveals no evidence of acute or subacute infarct. There is generalized atrophy. Ventricular size and configuration are normal. Advanced chronic small vessel ischemic changes are present in the white matter. There is an old right basal ganglia infarct extending into the subinsular region. There is a 3.0 mm thick dural-based mass in the right posterior frontal region which is probably a small meningioma. It measures about 9.0 x 13.0 x 3.0 mm in size. No associated mass effect. No other abnormal enhancement is identified. Craniovertebral junction is within normal limits. Major intracranial flow voids are maintained. IMPRESSION 1. No evidence of acute stroke or hemorrhage. 2. Advanced chronic small vessel ischemic disease in the white matter with generalized atrophy. 3. Old right basal ganglia infarct extending into the subinsular region. 4. Probable small right posterior frontal meningioma measuring only 3.0 mm in thickness. No other abnormal enhancement. [facility] A Service of [facility] RADIOLOGY TEXT RESULTS PATIENT: DUNCAN RAYMUNDO LOCATION: [facility] 231-01 : 53 UNIT #: [id number] AGE: [address]: Yanelis Florian MD SEX: F ORDER DR: Dictated by... Glenn Iverson Jr., M.D. THIS IS AN ELECTRONICALLY VERIFIED REPORT Glenn Iverson Jr., M.D. at 02/15/2017 10:05 AM NANCY/josey TD: 02/15/2017 08:54 JOB #: [id number] MRI CENTER REPORT Page 1 of 1 COPY
--- NOTE | ~2017-02-13 | CR72 ---
[facility] A Service of [facility] & [facility] RADIOLOGY TEXT RESULTS PATIENT: DUNCAN RAYMUNDO LOCATION: C2A : 53 UNIT #: [id number] AGE: [address]: Yanelis Florian MD SEX: F ORDER DR: [id number] [facility] [address] [place], [place] [address] [id number] I MR#: [id number] Acc #: [id number] NAME: DUNCAN RAYMUNDO. : 1955 SEX: F STUDY DATE/TIME: 02/13/2017 12:47 UNIT: A ROOM: [facility] STUDY DESCRIPTION: CR Chest Single View Portable Attending Physician: Yanelis Florian M.D. Ordering Physician: Zechariah Briones M.D. Primary Care Physician: Yanelis Florian M.D. MEDICAL IMAGING REPORT This report is preliminary unless electronic signature is present EXAM Portable chest, 02/13/17 COMPARISON 11/24/16 HISTORY Mild chest congestion, possible UTI, symptoms beginning today. FINDINGS An AP view was obtained. Cardiac size in the patient is normal. Lungs show an increase in the vascular markings and interstitial markings bilaterally. This could be related to lower volumes. CONCLUSION Increase in the vascular and interstitial markings in both lungs possibly related to lower volumes. Dictated by... Chucky Lewis M.D. THIS IS AN ELECTRONICALLY VERIFIED REPORT Chucky Lewis M.D. at 02/17/2017 7:15 AM IRAM/samara TD: 02/13/2017 20:42 JOB #: [id number] MEDICAL IMAGING REPORT Page 1 of 1 COPY
--- NOTE | ~2017-02-13 | HP ---
Unit #: [id number] #: [id number] Patient: DUNCAN MORA [id number] [facility]. [address] [place], [place] [address] [id number] I MR#: [id number] NAME: DUNCAN MORA. ROOM: 231 Age: 62 Sex: F Admission Date: 02/13/2017 : 1955 Attending Physician: Yanelis Florian M.D. Primary Care Physician: Yanelis Florian M.D. HISTORY AND PHYSICAL CHIEF COMPLAINT History of fall, possible TIA. HISTORY OF PRESENT ILLNESS Ms. Duncan Mora is a 62-year-old morbidly obese female with multiple medical problems, including hypertension, hyperlipidemia, chronic kidney disease, severe degenerative disk disease, depression, previous CVA, nicotine abuse. Came because of history of fall. According to the patient, she lives by herself. She has an uncle who comes once in a while and helps her with a bath. She was in the living room trying to go toward the sofa when she fell down. She thought she had a stroke. EMS was called. The patient was brought to the ER. Patient's speech is normal. She did have some slurred speech at that time. She does not complain of numbness or tingling of bilateral upper or lower extremities. No complaint of decreased strength, but she has generalized weakness. She has had history of degenerative disk disease. She did not have any chest pain. No shortness of breath. No dizziness. No syncopal episode. She was soaked in urine according to the EMS report. There is no history of tongue biting, no history of any seizures. PAST MEDICAL HISTORY 1. Hypertension. 2. Hyperlipidemia. 3. Chronic kidney disease. 4. Severe degenerative disk disease. 5. Morbid obesity. 6. Nicotine abuse. 7. History of CVA in the past. PAST SURGICAL HISTORY None. HOME MEDICATIONS I am going to try to get med list from my office. Patient does not know and does not have the list. ALLERGIES Aspirin. FAMILY HISTORY The patient's mother had hypertension. Father of alcoholism. One of her sisters had throat cancer, and another one had colon cancer. Unit #: [id number] #: [id number] Patient: DUNCAN MORA REVIEW OF SYMPTOMS No history of chest pain. No shortness of breath. No history of abdominal pain. No history of constipation or diarrhea. No history of major skin issues. SOCIAL HISTORY Patient lives at home by herself. She has an uncle who comes off and on to help her with home chores and for (1) personal care. She tries to ambulate with a walker. She is a smoker and continues to smoke. No history of alcohol abuse or drug abuse. PHYSICAL EXAMINATION GENERAL: Morbidly obese female, is sitting in the chair, does not seem to be in any respiratory distress. VITAL SIGNS: Blood pressure is 139/45, respiratory rate 16, pulse 92, temperature 97.6, oxygen saturation 97%. HEENT: Head is normocephalic. Eye movements are normal. Personal hygiene is not very well kept. CHEST: Fair air entry. No adventitious sounds. CVS: S1, S2 positive. Regular rhythm. ABDOMEN: Obese and soft. EXTREMITIES: Negative edema. HOPPER FEEDER: The patient seems to be awake, alert and oriented x3. Does not seem to have focal neurological deficit. Neuro exam has been limited. DIAGNOSTIC STUDIES LABORATORY: Lab workup shows WBC 14.6, hemoglobin 14.7, hematocrit 45.6, platelet count of 188. Troponin is less than 0.05. Sodium 138, potassium 4.4, chloride 105, BUN 23, creatinine 1.1. Liver enzymes are stable. IMAGING: CT of the head was done, which shows extensive white matter low attenuation, likely chronic ischemic changes. Old infarct in the right basal ganglia unchanged. No acute intracranial findings. ASSESSMENT AND PLAN 1. Patient is being admitted to med/surg unit with generalized (2) 2. Inability to ambulate. 3. Possible TIA. 4. History of fall at home. 5. Hypertension. 6. Severe degenerative disk disease. 7. Chronic kidney disease. 8. Hyperlipidemia. 9. Morbid obesity. 10. Nicotine abuse. PLAN Admit to med/surg. MRI of the brain is being done to rule out any infarct. Repeat urinalysis will be done. Med/rec is going to be obtained. Hydration will be given for clinical dehydration. PT/OT will be consulted. Patient may need rehab placement. Please refer to progress note for further orders. Dictated by Yanelis Florian M.D. Unit #: [id number] #: [id number] Patient: DUNCAN MORA MEME/yuri TD: 02/14/2017 13:32 JOB #: [id number] HISTORY AND PHYSICAL Page 1 of 1 X Yanelis Florian MD HISTORY AND PHYSICAL
--- NOTE | ~2017-02-13 | DS ---
Unit #: [id number] #: [id number] Patient: DUNCAN MORA [id number] [address] [address] [id number] I MR#: [id number] NAME: DUNCAN MORA. ROOM: 231 Age: 62 Sex: F Admission Date: 02/13/2017 : 1955 Discharge Date: 02/14/2017 Attending Physician: Yanelis Florian M.D. Primary Care Physician: Yanelis Florian M.D. DISCHARGE SUMMARY FINAL DIAGNOSES 1. Generalized weakness. 2. Possible transient ischemic attack, which has been ruled out. 3. Possible stroke, which has been ruled out. 4. History of fall at home. 5. Difficulty ambulating. 6. Hypertension. 7. Severe degenerative disk disease. 8. Chronic kidney disease. 9. Hyperlipidemia. 10. Urinary tract infection. 11. Tobacco abuse. 12. Morbid obesity. DISCHARGE MEDICATIONS 1. Cipro 500 mg b.i.d. for 5 days. 2. Gabapentin 100 mg t.i.d. 3. Zoloft 50 mg daily. 4. Toprol XL 100 mg daily. 5. Zocor 10 mg q.h.s. 6. Plavix 75 mg daily. 7. Baclofen 20 mg t.i.d. p.r.n. for muscle relaxing. DIAGNOSTIC STUDIES LAB WORKUP DURING HOSPITALIZATION: Hemoglobin A1C is 5.5. Urinalysis shows leukocytes 3+. TSH is 4.82. Blood cultures are negative. Lactic acid 1. Sodium 138, potassium 4.4, chloride 105, BUN 23, creatinine 1.1, GFR 53. WBC is 14.6, hemoglobin 14.7. RADIOLOGIC STUDIES DONE: CT scan of the head, which showed extensive white matter low attenuation, likely chronic ischemic changes. Old infarct in the right basal ganglia is unchanged. No acute intracranial abnormalities. CTA of the neck was done, and that showed mild plaque deposition in both carotid bulbs and in the carotid siphons without hemodynamically significant narrowing. Relatively small vertebral arteries, which are patent. A 1.5 cm left thyroid nodule is seen, which needs to have ultrasound done as an outpatient. MRI of the brain was done, which shows no evidence of acute stroke. Advanced chronic small vessel ischemic changes are seen. There is a small frontal meningioma, 3 mm. Unit #: [id number] #: [id number] Patient: DUNCAN MORA HOSPITAL COURSE Ms. Duncan Mora is a 62-year-old female who was admitted to med/surg unit at [facility] after having a fall and could not get up. Patient was brought to the ER, was found to have a UTI. Patient is going to be discharged on Cipro. The rest of the workup for CVA was negative. Patient is not a candidate for rehab at this time. Patient will be discharged home with [facility] to continue PT at home. Plan of care has been discussed with the patient at length. Tobacco cessation counselling done. DISCHARGE INSTRUCTIONS 1. Follow up with primary care provider in 1 week. 2. Ultrasound of the thyroid to be done as an outpatient. 3. PT/OT at home. 4. Follow up urine culture report. Dictated by... Isiah Angeles/yuri TD: 02/16/2017 09:53 JOB #: [id number] DISCHARGE SUMMARY Page 1 of 1 X Yanelis Florian MD X DISCHARGE SUMMARY
--- NOTE | ~2017-02-13 | CT24 ---
[facility] A Service of [facility] & [facility] RADIOLOGY TEXT RESULTS PATIENT: DUNCAN RAYMUNDO LOCATION: C2A : 53 UNIT #: [id number] AGE: [address]: Yanelis Florian MD SEX: F ORDER DR: [id number] [facility] [address] [place], [place] [address] [id number] I MR#: [id number] Acc #: [id number] NAME: DUNCAN RAYMUNDO. : 1955 SEX: F STUDY DATE/TIME: 02/13/2017 11:59 UNIT: [facility] ROOM: [facility] STUDY DESCRIPTION: CT Angio Neck Stroke Attending Physician: Yanelis Florian M.D. Ordering Physician: Zechariah Briones M.D. Primary Care Physician: Yanelis Florian M.D. MEDICAL IMAGING REPORT This report is preliminary unless electronic signature is present EXAM CT of the upper chest, neck and head with IV contrast, CT angiography of the extracranial vasculature. HISTORY SUPPLIED New onset slurred speech and right-sided facial drooping since 10:00 a.m. this morning. TECHNIQUE Axial imaging of the upper chest, neck and head was performed with IV bolus of contrast media. CT angiography was performed of the intra and extracranial vasculature utilizing 3-D MIP multiplanar reconstructions and 2-D and 3-D renderings. This CT exam was performed with one or more of the following radiation dose reduction techniques: automatic exposure control, adjustment of mA and/or kV according to patient size, and iterative reconstruction. FINDINGS The lung apices are clear. Scans through the cervical region do suggest a left-sided thyroid nodule measuring about 1.5 cm in diameter. Subglottic airway is normal. Hypopharynx, oropharynx and nasopharynx are unremarkable. There is no evidence of vascular malformations intracranially. No enhancing masses are seen. There is evidence of an old infarction in the right basal ganglia and there are deep white matter ischemic changes in the periventricular regions. VASCUAL FINDINGS: Arch and great vessels proximally are normal. Minimal plaque in the transverse and descending thoracic aorta. Both the right and left vertebral arteries are patent albeit relatively small. There is mild plaque deposition in both carotid bulbs without hemodynamically significant narrowing. There is mild plaque deposition in both carotid STS. [facility] A Service of [facility] & [facility] RADIOLOGY TEXT RESULTS PATIENT: DUNCAN RAYMUNDO LOCATION: C2A 231-01 : [birth year] UNIT #: [id number] AGE: [address]: Yanelis Florian MD SEX: F ORDER DR: siphons without hemodynamically significant narrowing. Intracranially the right posterior communicating artery is not seen. The left posterior communicating artery is patent. The left P1 segment is relatively small and atretic. Both middle and both anterior cerebral arteries appear to fill normally. Posterior cerebral artery distal perfusion is normal. No evidence of intracranial stenosis, vessel cutoff or vascular malformation. CONCLUSION 1. Mild plaque deposition in both carotid bulbs and in the carotid siphons without hemodynamically significant narrowing. Relatively small vertebral arteries which are patent. Relatively small left P1 segment. No intracranial abnormalities are identified. There is an absent right posterior communicating artery. Distal flow in the vascular bed is normal. 2. A 1.5 cm left thyroid nodule. Consider a followup ultrasound of the thyroid gland as an outpatient. Dictated by... Chucky Lewis M.D. THIS IS AN ELECTRONICALLY VERIFIED REPORT Chucky Lewis M.D. at 02/17/2017 7:15 AM IRAM/anthony TD: 02/13/2017 21:00 JOB #: [id number] MEDICAL IMAGING REPORT Page 1 of 1 COPY
--- NOTE | ~2017-02-13 | CT72 ---
[facility] A Service of [facility] RADIOLOGY TEXT RESULTS PATIENT: DUNCAN RAYMUNDO LOCATION: [facility] : 51 UNIT #: [id number] AGE: [address]: Yanelis Florian MD SEX: F ORDER DR: [id number] [place] [id number] [facility]. [place], [place] [address] [id number] I MR#: [id number] Acc #: [id number] NAME: DUNCAN RAYMUNDO. : 1955 SEX: F STUDY DATE/TIME: 02/13/2017 11:46 UNIT: [facility] ROOM: [facility] STUDY DESCRIPTION: CT Head Wo Contrast Stroke Attending Physician: Yanelis Florian M.D. Ordering Physician: Zechariah Briones M.D. Primary Care Physician: Yanelis Florian M.D. MEDICAL IMAGING REPORT This report is preliminary unless electronic signature is present EXAM CT brain without contrast media, 02/13/17 COMPARISON 11/24/16 HISTORY New onset slurred speech this morning. Right-sided facial droop. TECHNIQUE Axial imaging of the brain was performed without contrast media. The study is directly compared to the patient's previous study of 11/24/16. This CT exam was performed with one or more of the following radiation dose reduction techniques: Automatic exposure control, adjustment of mA and/or kV according to patient size, and iterative reconstruction. FINDINGS Ventricular size and configuration is normal. There are relatively extensive areas of low attenuation throughout the periventricular white matter in both hemispheres. There is a large chronic infarct identified within the right basal ganglia. No mass lesions, mass effect, evidence of acute hemorrhage or edema. No intra- or extraaxial fluid collections are present. There is an impacted wisdom tooth in the right maxillary sinus. There are atherosclerotic calcifications in the carotid siphons. CONCLUSION 1. Extensive white matter low attenuation likely chronic ischemic changes. 2. Old infarct right basal ganglia, unchanged. 3. No acute intracranial findings. [facility] A Service [facility] RADIOLOGY TEXT RESULTS PATIENT: DUNCAN RAYMUNDO LOCATION: [address] : [birth year] UNIT #: [id number] AGE: [address]: Yanelis Florian MD SEX: F ORDER DR: Dictated by... Chucky Lewis M.D. THIS IS AN ELECTRONICALLY VERIFIED REPORT Chucky Lewis M.D. at 02/17/2017 7:15 AM IRAM/samara TD: 02/13/2017 20:18 JOB #: [id number] MEDICAL IMAGING REPORT Page 1 of 1 COPY
--- NOTE | ~2017-02-13 | EKG ---
PATIENT: DUNCAN RAYMUNDO UNIT #: [id number] Ventricular Rate: 63 BPM Atrial Rate: 63 BPM P-R Interval: 110 ms QRS Duration: 76 ms Q-T Interval: 408 ms QTC Calculation(Bezet): 417 ms P [place]: 35 degrees Calculated R [place]: 9 degrees Calculated T [place]: -3 degrees Diagnosis Line: Sinus rhythm with short VT with Premature atrial Diagnosis Line: complexes Diagnosis Line: Voltage criteria for left ventricular hypertrophy Diagnosis Line: Cannot rule out Inferior infarct , age Diagnosis Line: undetermined Diagnosis Line: Abnormal ECG Diagnosis Line: When compared with ECG of 24-NOV-2016 14:02, Diagnosis Line: Premature atrial complexes are now Present Diagnosis Line: VT interval has decreased Diagnosis Line: Possible Inferior infarct is now Present Diagnosis Line: Confirmed by JUSTIN PRICE MD ([id number]) on 02/13/2017 Diagnosis Line: 4:53:56 PM INTERPRETING MD: ALBERT CASH
[~2017-02-13 11:18] MED LIST: CALCIUM + D 6001 TA1 PO; CLOPIDOGREL75 MG PO; FISH OIL 1,0001 CAP PO; HYDROCHLOROTHIA25 MG PO; ZOCOR10 MG PO; ZOLOFT50 MG PO
[2017-02-13 12:55] LABS: POC - CREATININE 0.93 mg/dL (0.44-1.03); POC - GFR >60.0 mL/min (>60)
[2017-02-13 13:38] LABS: BASOPHIL% 0.3 % (0-2.5); EOSINOPHIL# 0.1 X10e3 (0-0.7); EOSINOPHIL% 0.6 % (0.0-7.0); HEMATOCRIT 45.6 % (35.0-45.0); HEMOGLOBIN 14.7 gm/dL (12.0-16.0); LYMPHOCYTE# 1.8 X10e3 (1.0-3.5); LYMPHOCYTE% 12.3 % (17.0-45.0); MEAN CELL VOLUME 90.1 FL (83-96); MEAN CORPUSCULAR HGB CONC 32.1 g/dL (30-36); MEAN PLATELET VOLUME 9.9 FL (6.5-11.5); MONOCYTE# 1.1 X10e3 (0-1.0); MONOCYTE% 7.3 % (3.0-12.0); NEUTROPHIL# 11.6 X10e3 (1.5-7.1); NEUTROPHIL% 79.5 % (40-75); PLATELET COUNT 188 X10e3 (140-420); RED BLOOD COUNT 5.06 X10e (3.90-5.30); RED CELL DISTRIBUTION WIDTH 14.2 % (11.0-15.5); WHITE BLOOD COUNT 14.6 X10e3 (4.0-10.5)
[2017-02-13 13:44] LABS: DIFF IND NO
[2017-02-13 13:49] LABS: PROTHROMBIN TIME (PATIENT) 10.6 SECONDS (9.6-11.5)
[2017-02-13 13:50] LABS: URINE SOURCE CLEAN CATCH
[2017-02-13 13:51] LABS: POC - CKMB 1.3 ng/mL (0.0-7.9); POC - TROPONIN <0.05 ng/mL (<=0.05)
[2017-02-13 13:55] LABS: URINE APPEARANCE CLEAR; URINE BILIRUBIN NEG (NEG); URINE BLOOD NEG (NEG); URINE COLOR YELLOW; URINE GLUCOSE NEG (NEG); URINE KETONE NEG (NEG); URINE LEUKOCYTE ESTERASE NEG (NEG); URINE NITRATE NEG (NEG); URINE PH 7.5 (5-8); URINE PROTEIN NEG (NEG); URINE SPECIFIC GRAVITY 1.022 (1.003-1.035); URINE UROBILINOGEN 0.2 MG/DL (NEG)
[2017-02-13 14:02] LABS: ALBUMIN SERUM 3.7 g/dL (3.5-5.0); BILIRUBIN, DIRECT 0.1 mg/dL (0.0-0.2); BILIRUBIN,INDIRECT 0.5 mg/dL (0.0-0.9); BILIRUBIN,TOTAL 0.6 mg/dL (0.2-2.0); BUN/CREATININE RATIO 20.9; CREATININE SERUM 1.1 mg/dL (0.6-1.4); POTASSIUM 4.4 mmol/L (3.5-5.1); PROTEIN TOTAL SERUM 7.5 g/dL (6.0-8.3)
[2017-02-13 14:20] LABS: CULTURE INDICATED? NO
[2017-02-14] MEDS ORDERED: NEURONTIN100 MG PO (13:58)
[2017-02-14] MEDS ORDERED: LIORESAL10 MG PO (13:59)
[2017-02-14] MEDS ORDERED: TOPROL XL100 MG PO ×2 (14:00→14:01)
[2017-02-14] MEDS ORDERED: SERTRALINE HCL50 M1 PO (14:03)
[2017-02-14] MEDS ORDERED: CLOPIDOGREL75 MG PO (14:03)
[2017-02-14] MEDS ORDERED: SIMVASTATIN10 MG PO (14:04)
[2017-02-14 15:41] LABS: URINE APPEARANCE CLEAR; URINE BILIRUBIN NEG (NEG); URINE BLOOD 3+ (NEG); URINE COLOR YELLOW; URINE GLUCOSE NEG (NEG); URINE KETONE NEG (NEG); URINE LEUKOCYTE ESTERASE 3+ (NEG); URINE NITRATE NEG (NEG); URINE PH 5.5 (5-8); URINE PROTEIN NEG (NEG); URINE SPECIFIC GRAVITY 1.025 (1.003-1.035); URINE UROBILINOGEN 0.2 MG/DL (NEG)
[2017-02-14 15:42] LABS: URBCS1 AUWI 25-50 /[HPF] (0-2); URINE BACTERIA AUWI NEG (NEGATIVE); URINE SQUAMOUS EPITHELIAL CELL OCC /[HPF]; UWBCS1 AUWI 25-50 (0-5)
[2017-02-14 15:43] LABS: U HYALINE CASTS AUWI 0-2 /[LPF]
[2017-02-15] MEDS ORDERED: TYL325 PO (17:29)
[2017-02-15] MEDS ORDERED: CIPRO PO (17:30)
== END 2017-02-15 19:06 | disposition home or self-care (01) ==
LOC: CED 11:18 → CEDOF 17:05 → CED 17:36 → CEDOF 17:36 → C2A 19:45
PROVIDERS: Emergency Medicine; Physician Assistant Medical
DX: R53.1 Weakness (principal); Z91.81 History of falling; R26.2 Difficulty in walking, not elsewhere classified; I12.9 Hypertensive chronic kidney disease with stage 1 through stage 4 chronic kidney disease, or unspecified chronic kidney disease; N18.9 Chronic kidney disease, unspecified; E78.5 Hyperlipidemia, unspecified; E66.01 Morbid (severe) obesity due to excess calories; F17.200 Nicotine dependence, unspecified, uncomplicated; Z81.1 Family history of alcohol abuse and dependence; Z82.49 Family history of ischemic heart disease and other diseases of the circulatory system; Z80.0 Family history of malignant neoplasm of digestive organs; Z86.73 Personal history of transient ischemic attack (TIA), and cerebral infarction without residual deficits; Z88.6 Allergy status to analgesic agent; Z79.02 Long term (current) use of antithrombotics/antiplatelets
CPT/HCPCS: 36415; 70450; 70496; 70498; 70553; 71010; 80048; 80076; 81003; 82553; 82565; 82947; 83036; 83605; 84443; 84484; 85025; 85610; 87040; 87086; 93005; 96372; 97110; 97116; 97162; 97166; 97530; 99285; A9577; G0378; G8978-GP; G8979-GP; G8987-GO; G8988-GO; G8989-GO; J1650; Q9967

== ENCOUNTER 2017-04-13 19:00 | Inpatient (IN) | payer MEDICARE ==
[~2017-04-13] VITALS: Ht 127 cm; Wt 102.6 kg
--- NOTE | ~2017-04-13 | BMI ---
[facility] Nutrition Therapy DATE: 04/14/17 Patient: DUNCAN RAYMUNDO Physician: LINH Address: [address] [place] [address] Room/Bed: [address] [place] [address], Zip: [place] [address] Admit Date: 04/14/17 Date of : [birth year] Height: 4 2 Weight: 226 102.6 HIGH BMI NOTE: DX: 62 y/o female admitted with DVT ANTHROPOMETRICS: Ht: 50" (pt confirmed), Wt: 102.6 kg, BMI: 63 (stage III obese) DIET: Regular INTERVENTION: Restricted diet, meds/fluids per MD RECOMMENDATIONS: Consider changing diet to healthy heart to promote a gradual weight loss towards a healthy BMI range. Respectfully, Corazon Reyes RD, LD Food and Nutritional Services [facility] cc: client file
--- NOTE | ~2017-04-13 | CO ---
Unit #: [id number] #: [id number] Patient: DUNCAN RAYMUNDO [id number] [address] [place], [place] [address] [id number] MR#: [id number] NAME: DUNCAN RAYMUNDO. ROOM: 566 Age: 62 Sex: F Admission Date: 04/14/2017 : 1955 Attending Physician: Yanelis Florian M.D. Primary Care Physician: Yanelis Florian M.D. CONSULTATION REPORT SHORT SUMMARY STAY CHIEF COMPLAINT Right lower extremity swelling. HISTORY OF PRESENTING ILLNESS A 62-year-old morbidly obese female, who had ultrasound for right lower extremity done yesterday evening at [facility] and was found to have a clot. The patient was admitted to hospital for anticoagulation therapy. The patient has not had a past history of any clots or family history of DVT or pulmonary embolism. The patient complained of right lower extremity pain and swelling for last few days which was gradually getting worse. No complain of fever, chills, or rigors. No complain of nausea and vomiting. PAST MEDICAL HISTORY Hyperlipidemia, chronic kidney disease, hypertension, severe degenerative disk disease, nicotine abuse, morbid obesity, history of CVA in the past. ALLERGIES The patient is allergic to aspirin. PAST SURGICAL HISTORY None. HOME MEDICATIONS Neurontin 100 mg b.i.d., Zoloft 50 mg daily, Plavix 75 mg daily, metoprolol 100 mg daily, multivitamin p.o. daily, fish oil capsules 1200 mg daily, baclofen 20 mg b.i.d., amlodipine 5 mg q.a.m. and simvastatin 10 mg q.evening. SOCIAL HISTORY The patient is a smoker and continued to smoke. She smokes more than one pack per day. No history of alcohol abuse or drug abuse. FAMILY HISTORY The patient's mother had hypertension and one of the sister had throat cancer. One of the sister had colon cancer. Father was an alcoholic. REVIEW OF SYSTEMS As per history of presenting illness. No history of fever, chills, or rigors. No history of nausea or vomiting. No history of chest pain. No Unit #: [id number] #: [id number] Patient: DUNCAN RAYMUNDO history of abdominal pain. No history of constipation or diarrhea. She does complain of skin rashes under her breasts and in the inguinal area. PHYSICAL EXAMINATION GENERAL: The patient is lying comfortably in bed. Does not seem to be in any respiratory distress. VITAL SIGNS: Blood pressure is 150/82, respiratory rate 18, pulse is 51, temperature 97.8, oxygen saturation is 99%. HEAD: Normocephalic. CHEST: Fair air entry. No additional sounds. CVS: S1, S2 positive. Regular rhythm. ABDOMEN: Obese and soft. No tenderness. No rigidity. EXTREMITIES: Right lower extremity swollen. Kristal sign is positive. Mild redness is present. SKIN: Under the breasts and in the sherman-inguinal area, there is lot of redness and lot of fungal infection. PCB DESIGNER: The patient is awake, alert, oriented x3. No focal neurological deficit. DIAGNOSTIC STUDIES LABORATORY RESULTS: WBC 12.1, hemoglobin 13.7, hematocrit 43.2, and platelet count of 229. PT/INR 10.8 and 1.0. Sodium 140, potassium 4.0, chloride 104, BUN 17, creatinine 1.1. Liver enzymes shows alkaline phosphatase 101. Rest of the liver enzymes were stable. IMAGING STUDIES: Venous Doppler study of the right lower extremity was done, which shows nonocclusive deep venous thrombosis of the right superficial femoral vein. CTA of the chest was done, which showed no evidence of pulmonary embolism within the main pulmonary artery. No pericardial effusion. Upper substernal left-sided mediastinal mass below the thyroid measuring up to 3.4 cm most likely representing substernal thyroid goiter. This is unchanged from 06/01/2016. HOSPITAL COURSE Ms. Wang was admitted to [facility] telemetry unit with diagnosis of right lower extremity DVT. It was nonocclusive. The patient was started on Lovenox 1 mg/kg 40 with subcu q.12. PE was ruled out. The patient was seen by Dr. William from [facility]. Xarelto is being started. The patient can be discharged home. Tobacco cessation counseling done at length. Side effects of the medications discussed with the patient at length. The patient will follow up with me in 1 week. The patient does have some fungal infection under her breast and in the sherman-inguinal area. We are going to give fluconazole tablets and continue nystatin powder. DISCHARGE MEDICATIONS Xarelto starter pack. DISCHARGE INSTRUCTIONS 1. Discharged the patient home in stable condition. 2. Follow up primary care provider in 1 week. 3. Medication as per med rec. 4. Tobacco cessation counseling done. Dictated by... Yanelis Florian M.D. Unit #: [id number] #: [id number] Patient: DUNCAN RAYMUNDO MEME/zandra TD: 04/14/2017 20:03 JOB #: [id number] CONSULTATION REPORT Page 1 of 1 X Yanelis Florian MD X CONSULTATION REPORT
--- NOTE | ~2017-04-13 | CO ---
Unit #: [id number] #: [id number] Patient: DUNCAN RAYMUNDO [id number] [facility]. [address] [place], [place] [address] [id number] I MR#: [id number] NAME: DUNCAN RAYMUNDO. ROOM: 56 Age: 62 Sex: F Admission Date: 04/14/2017 : 1955 Attending Physician: Yanelis Florian M.D. Primary Care Physician: Yanelis Florian M.D. Consultation Date: 04/14/2017 CONSULTATION REPORT REASON FOR EVALUATION Right-sided superficial femoral nonocclusive thrombus, please evaluate. HISTORY OF PRESENT ILLNESS Patient is a 62-year-old lady who is morbidly obese, heavy smoker, very little mobility, takes her about 20 minutes to get from the bedroom to the kitchen with episodes of sitting in between due to severe degenerative joint disease, depression, presents with a right-sided superficial femoral nonocclusive thrombus with swelling and pain in the leg. We are requested to evaluate. On questioning her, she is mainly concerned about this severe pain of the degenerative disc disease, joint disease, decreased mobility and states that the leg started hurting so she made it to the emergency room. PAST MEDICAL HISTORY Has a past history of hypertension, hyperlipidemia, chronic kidney disease, severe degenerative joint disease, morbid obesity, depression in the past but no past history of DVT or bleeding. FAMILY HISTORY Family history is positive for hypertension, alcoholism but negative for blood dyscrasias or clots. ALLERGIES Aspirin. CHRONIC MEDICATIONS Include Neurontin, sertraline, Plavix, metoprolol, multivitamins, fish oil, baclofen, amlodipine, simvastatin. REVIEW OF SYSTEMS Mainly remarkable for decreased mobility, pain in the leg, shortness of breath on exertion, chronic active pain upon walking, sitting and lying down. Otherwise six or eight systems were within normal limits. PHYSICAL EXAMINATION GENERAL APPEARANCE: On exam, morbidly obese lady on O2. LYNPHATIC: No palpable nodes although they are difficult to palpate. LUNGS: Crackles, no rales. CARDIOVASCULAR: Distant S1, S2. ABDOMEN: Severely obese. Difficult to palpate any organs. No rebound. No rigidity. VICE CHAIR: Grossly intact. Unit #: [id number] #: [id number] Patient: DUNCAN RAYMUNDO GENITOURINARY: Pelvic exam was not performed. BREASTS: Exam was not performed. DIAGNOSTIC STUDIES LABORATORY: CBC: Hemoglobin 13.7, hematocrit 43, white count 12.1, platelets 229,000. Sodium 140, potassium 4, chloride 104, CO2 27, glucose 93, BUN 17, creatinine 1.1. IMAGING: Doppler shows a nonocclusive thrombus, superficial femoral. CT angio of the chest negative for clots. IMPRESSION This is a 62-year-old lady who is morbidly obese, has severe degenerative disc and joint disease, decreased mobility and heavy smoker as well as the combinations to have clotting problems due to the above, has a nonocclusive thrombus right femoral with negative CT angio of the chest so at this point I had a long discussion with her. She has to #1 stop smoking, #2 go on a strict diet, #3 start Xarelto 15 mg p.o. b.i.d. for 21 days followed by 20 mg with supper and see her in the office at three months. If she is making progress and stopping smoking and losing weight and increasing mobility, we will proceed and stop the anticoagulation at that point. Otherwise, her chances are high and we may have to continue anticoagulation for a longer period. Benefits and risks of this approach were explained to her. She is in agreement. Dictated by... Rui William M.D. SAMIA/isaac TD: 04/14/2017 16:28 JOB #: [id number] CONSULTATION REPORT Page 1 of 1 X Rui William MD X CONSULTATION REPORT
--- NOTE | ~2017-04-13 | CT16 ---
[facility] A Service of [facility] & [facility] RADIOLOGY TEXT RESULTS PATIENT: DUNCAN RAYMUNDO LOCATION: [facility] [place] [facility] 566-01 : [birth year] UNIT #: [id number] AGE: [address]: Yanelis Florian MD SEX: F ORDER DR: [id number] [facility] [address] [place], [place] [address] [id number] I MR#: [id number] Acc #: [id number] NAME: DUNCAN RAYMUNDO. : 1955 SEX: F STUDY DATE/TIME: 04/14/2017 1:01 UNIT: [facility] [place] [facility] ROOM: [facility] STUDY DESCRIPTION: CT Angio Chest for PE Attending Physician: Yanelis Florian M.D. Ordering Physician: Blanche Fragoso M.D. Primary Care Physician: Yanelis Florian M.D. MEDICAL IMAGING REPORT This report is preliminary unless electronic signature is present EXAM CT chest with contrast, 04/14/2017. HISTORY 62-year-old female in the ED complaining of a 1-month history of chest pain and shortness of air. Right leg DVT on ultrasound. TECHNIQUE CT examination of the chest with IV contrast using pulmonary arteriography protocol. CTA images of the pulmonary arteries were reformatted as multiplanar MIP images. This CT exam was performed with one or more of the following radiation dose reduction techniques: automatic exposure control, adjustment of mA and/or kV according to patient size, and iterative reconstruction. FINDINGS There is poor contrast opacification of smaller peripheral pulmonary arteries. There is no visible pulmonary artery thromboembolism within main pulmonary arteries or larger central pulmonary arteries. Thoracic aorta is normal in caliber. Heart size is normal. Mild linear scarring or atelectasis in the lower lungs. Lungs otherwise clear. No visible pleural or pericardial effusion. Substernal mass in the superior mediastinum below the thyroid on the left measuring up to 3.4 cm, unchanged since 06/01/2016. Substernal thyroid goiter is likely. IMPRESSION 1. Technically limited study as noted above. Incomplete contrast opacification of medium and smaller pulmonary arteries in the peripheral lungs. There is no evidence of pulmonary embolism within STS. [facility] A Service of [facility] & [facility] RADIOLOGY TEXT RESULTS PATIENT: DUNCAN RAYMUNDO LOCATION: [facility] [place] [facility] 566-01 : [birth year] UNIT #: [id number] AGE: [address]: Yanelis Florian MD SEX: F ORDER DR: the main pulmonary arteries or large central pulmonary arteries. 2. Heart size normal. No pericardial effusion. Normal-caliber thoracic aorta. 3. Linear scarring or atelectasis in the posterior lower lungs. Lungs otherwise clear. 4. Upper substernal left side mediastinal mass below the thyroid measuring up to 3.4 cm, most likely representing substernal thyroid goiter. This is unchanged since 06/01/2016. Dictated by... Maico Delgado M.D. THIS IS AN ELECTRONICALLY VERIFIED REPORT Maico Delgado M.D. at 04/14/2017 9:57 PM ROSALIOW/judi TD: 04/14/2017 10:25 JOB #: [id number] MEDICAL IMAGING REPORT Page 1 of 1 COPY
[~2017-04-13 19:00] MED LIST changes: +CIPRO PO; +LIORESAL10 MG PO; +NEURONTIN100 MG PO; +SERTRALINE HCL50 M1 PO; +SIMVASTATIN10 MG PO; +TOPROL XL100 MG PO; +TYL325 PO
[2017-04-13 20:01] LABS: BASOPHIL# 0.1 X10e3 (0-0.3); BASOPHIL% 1.1 % (0-2.5); EOSINOPHIL# 0.4 X10e3 (0-0.7); HEMOGLOBIN 13.7 gm/dL (12.0-16.0); LYMPHOCYTE# 2.5 X10e3 (1.0-3.5); LYMPHOCYTE% 20.6 % (17.0-45.0); MEAN CELL VOLUME 90.6 FL (83-96); MEAN PLATELET VOLUME 9.7 FL (6.5-11.5); MONOCYTE# 0.9 X10e3 (0-1.0); MONOCYTE% 7.8 % (3.0-12.0); NEUTROPHIL# 8.2 X10e3 (1.5-7.1); NEUTROPHIL% 67.5 % (40-75); PLATELET COUNT 229 X10e3 (140-420); RED BLOOD COUNT 4.75 X10e (3.90-5.30); RED CELL DISTRIBUTION WIDTH 14.1 % (11.0-15.5); WHITE BLOOD COUNT 12.1 X10e3 (4.0-10.5)
[2017-04-13 20:02] LABS: DIFF IND NO
[2017-04-13 20:17] LABS: PROTHROMBIN TIME (PATIENT) 10.8 SECONDS (10.0-11.7)
[2017-04-13 20:26] LABS: BUN/CREATININE RATIO 15.45; CALCIUM SERUM 9.1 mg/dL (8.4-10.2); CREATININE SERUM 1.1 mg/dL (0.6-1.4)
[2017-04-13] MEDS ORDERED: NEURONTIN100 MG PO (21:15)
[2017-04-13] MEDS ORDERED: SERTRALINE HCL50 M1 PO (21:16)
[2017-04-13] MEDS ORDERED: METOPROLOL SUC100 MG PO (21:17)
[2017-04-13] MEDS ORDERED: CLOPIDOGREL BIS75 MG PO (21:17)
[2017-04-13] MEDS ORDERED: MULTI VITAMIN1 EACH PO (21:17)
[2017-04-13] MEDS ORDERED: FISH OIL300 MG PO (21:18)
[2017-04-13] MEDS ORDERED: BACLOFEN20 M1 PO (21:18)
[2017-04-13] MEDS ORDERED: AMLODIPINE BESYL5 MG PO (21:19)
[2017-04-13] MEDS ORDERED: SIMVASTATIN10 MG PO (21:19)
[2017-04-14 03:57] LABS: ALBUMIN SERUM 3.4 g/dL (3.5-5.0); BILIRUBIN, DIRECT 0.2 mg/dL (0.0-0.2); BILIRUBIN,INDIRECT 0.5 mg/dL (0.0-0.9); BILIRUBIN,TOTAL 0.7 mg/dL (0.2-2.0); PROTEIN TOTAL SERUM 6.7 g/dL (6.0-8.3)
[2017-04-14] MEDS ORDERED: MYCOSTATIN POWD15 GM EXT (15:24)
[2017-04-14] MEDS ORDERED: FLUCONAZOLE100 M1 PO (15:27)
[2017-04-14] MEDS ORDERED: XARELTO10 MG (15:29)
== END 2017-04-14 16:44 | disposition home or self-care (01) | DRG 300 ==
LOC: CED 19:00 → CEDOF 04-14 01:45 → CED 04-14 02:12 → CEDOF 04-14 02:12 → C5C 04-14 04:13 → CEDOF 04-14 04:13 → C5C 04-14 16:44
PROVIDERS: Emergency Medicine
DX: I82.811 Embolism and thrombosis of superficial veins of right lower extremity (principal); Z68.43 Body mass index [BMI] 50.0-59.9, adult; I12.9 Hypertensive chronic kidney disease with stage 1 through stage 4 chronic kidney disease, or unspecified chronic kidney disease; E66.01 Morbid (severe) obesity due to excess calories; E78.5 Hyperlipidemia, unspecified; F17.200 Nicotine dependence, unspecified, uncomplicated; Z86.73 Personal history of transient ischemic attack (TIA), and cerebral infarction without residual deficits; Z79.02 Long term (current) use of antithrombotics/antiplatelets; Z82.49 Family history of ischemic heart disease and other diseases of the circulatory system; Z80.0 Family history of malignant neoplasm of digestive organs; Z80.8 Family history of malignant neoplasm of other organs or systems; Z81.1 Family history of alcohol abuse and dependence; M19.90 Unspecified osteoarthritis, unspecified site; N18.9 Chronic kidney disease, unspecified; R60.0 Localized edema
CPT/HCPCS: 36415; 71275; 80048; 80076; 85025; 85610; 93971; 96360; 99285; J1650; Q9967

== ENCOUNTER 2017-04-19 13:57 | Emergency (ER) | payer MEDICARE ==
[~2017-04-19] VITALS: Ht 127 cm; Wt 102.6 kg
--- NOTE | ~2017-04-19 | EKG ---
PATIENT: DUNCAN RAYMUNDO UNIT #: [id number] Ventricular Rate: 72 BPM Atrial Rate: 72 BPM P-R Interval: 138 ms QRS Duration: 78 ms Q-T Interval: 394 ms QTC Calculation(Bezet): 431 ms P [place]: 17 degrees Calculated R [place]: 0 degrees Calculated T [place]: 7 degrees Diagnosis Line: Normal sinus rhythm Diagnosis Line: Minimal voltage criteria for LVH, may be normal Diagnosis Line: variant Diagnosis Line: Borderline ECG Diagnosis Line: When compared with ECG of 13-FEB-2017 12:32, Diagnosis Line: Premature atrial complexes are no longer Present Diagnosis Line: Criteria for Inferior infarct are no longer Diagnosis Line: Present Diagnosis Line: ST no longer elevated in Inferior leads Diagnosis Line: Confirmed by JUSTIN PRICE MD ([id number]) on 04/19/2017 Diagnosis Line: 6:24:11 PM INTERPRETING MD: ALBERT CASH
--- NOTE | ~2017-04-19 | CR63 ---
[facility] A Service of [facility] & [facility] RADIOLOGY TEXT RESULTS PATIENT: DUNCAN RAYMUNDO LOCATION: [facility] : 53 UNIT #: [id number] AGE: [address]: Shameka Bean MD SEX: F ORDER DR: [id number] [facility] [address] [place], [place] [address] [id number] MR#: [id number] Acc #: [id number] NAME: DUNCAN RAYMUNDO : 1955 SEX: F STUDY DATE/TIME: 04/19/2017 16:11 UNIT: [facility] ROOM: STUDY DESCRIPTION: CR Chest 2 View Attending Physician: Shameka Bean M.D. Referring Physician: Yanelis Florian M.D. Ordering Physician: Ed Doctor [id number] [facility] Primary Care Physician: Yanelis Florian M.D. MEDICAL IMAGING REPORT This report is preliminary unless electronic signature is present EXAM PA and lateral chest, date 04/19/2017 HISTORY Shortness breath, weakness for 2 days. Hypertension. COMPARISON AP portable chest 02/13/2017 FINDINGS Heart size is upper limits normal but stable. Pulmonary vascular distribution is normal. No acute airspace disease. No pleural effusion or pneumothorax. No acute osseous abnormalities identified. Studies attenuated by body habitus. IMPRESSION No acute cardiopulmonary findings. Dictated by... Jovanna De La Torre M.D. THIS IS AN ELECTRONICALLY VERIFIED REPORT Jovanna De La Torre M.D. at 04/20/2017 8:43 AM APRIL/tray TD: 04/19/2017 22:17 JOB #: [id number] MEDICAL IMAGING REPORT Page 1 of 1 COPY
[~2017-04-19 13:57] MED LIST changes: +AMLODIPINE BESYL5 MG PO; +BACLOFEN20 M1 PO; +CLOPIDOGREL BIS75 MG PO; +FISH OIL300 MG PO; +FLUCONAZOLE100 M1 PO; +METOPROLOL SUC100 MG PO; +MULTI VITAMIN1 EACH PO; +MYCOSTATIN POWD15 GM EXT; +XARELTO10 MG
[2017-04-19 15:27] LABS: BASOPHIL# 0.1 X10e3 (0-0.3); BASOPHIL% 0.6 % (0-2.5); EOSINOPHIL# 0.1 X10e3 (0-0.7); EOSINOPHIL% 0.4 % (0.0-7.0); HEMATOCRIT 43.5 % (35.0-45.0); HEMOGLOBIN 14.3 gm/dL (12.0-16.0); LYMPHOCYTE# 1.5 X10e3 (1.0-3.5); LYMPHOCYTE% 12.8 % (17.0-45.0); MEAN CELL VOLUME 89.1 FL (83-96); MEAN CORPUSCULAR HEMOGLOBIN 29.3 PG (28-34); MEAN CORPUSCULAR HGB CONC 32.9 g/dL (30-36); MEAN PLATELET VOLUME 9.2 FL (6.5-11.5); MONOCYTE# 0.9 X10e3 (0-1.0); MONOCYTE% 7.9 % (3.0-12.0); NEUTROPHIL# 9.3 X10e3 (1.5-7.1); NEUTROPHIL% 78.3 % (40-75); PLATELET COUNT 215 X10e3 (140-420); RED BLOOD COUNT 4.88 X10e (3.90-5.30); WHITE BLOOD COUNT 11.9 X10e3 (4.0-10.5)
[2017-04-19 15:29] LABS: DIFF IND NO
[2017-04-19 15:51] LABS: BILIRUBIN, DIRECT 0.1 mg/dL (0.0-0.2); BILIRUBIN,TOTAL 1.1 mg/dL (0.2-2.0); BUN/CREATININE RATIO 12.72; CALCIUM SERUM 9.1 mg/dL (8.4-10.2); CREATININE SERUM 1.1 mg/dL (0.6-1.4); POTASSIUM 3.9 mmol/L (3.5-5.1)
[2017-04-19 16:41] LABS: POC - CKMB 4.2 ng/mL (0.0-7.9); POC - TROPONIN <0.05 ng/mL (<=0.05)
[2017-04-19 16:50] LABS: ARTERIAL BLOOD GAS HCO3 22.9 mmol/L; ARTERIAL BLOOD GAS MET HB 0.5 %sat (0.0-2.0); ARTERIAL BLOOD GAS PCO2 33.5 mmHg (35.0-45.0); ARTERIAL BLOOD GAS PO2 98.6 mmHg (80.0-100); ARTERIAL BLOOD GAS pH 7.443 (7.350-7.450); ARTERIAL DRAW? YES
[2017-04-19 16:51] LABS: ARTERIAL BLOOD GAS ALLEN TEST NORMAL; ARTERIAL BLOOD GAS ART SITE RIGHT RADIAL; ARTERIAL BLOOD GAS DELIVERY NASAL CANNULA
[2017-04-19 17:17] LABS: POC - TROPONIN <0.05 ng/mL (<=0.05)
== END 2017-04-19 18:10 | disposition home or self-care (01) ==
LOC: CED 13:57
PROVIDERS: Emergency Medicine
DX: J44.9 Chronic obstructive pulmonary disease, unspecified (principal); F17.200 Nicotine dependence, unspecified, uncomplicated; Z88.6 Allergy status to analgesic agent; Z79.899 Other long term (current) drug therapy
CPT/HCPCS: 36415; 36600; 71020; 80048; 80076; 82553; 82803; 84484; 85025; 93005; 94640; 99285